=== PATIENT | female | born 1965 | race Caucasian/White ===

== ENCOUNTER → 2017-09-15 15:31 | Outpatient (POV) | payer OTHER, SELFPAY ==
[2017-09-15 16:28] LABS: Basophils % 0.7 % (0.1-2.0); Eosinophils # 0.1 K/mm3 (0.0-0.4); Eosinophils % 2.8 % (0.1-12.0); Hematocrit 38.6 % (37.0-47.0); Hemoglobin 13.2 g/dL (12.2-16.2); Lymphocytes # 1.4 K/mm3 (0.7-4.5); Lymphocytes % 27.8 K/mm3 (10-50); Mean Corpuscular HGB Conc 34.2 g/dL (31.8-35.4); Mean Corpuscular Hemoglobin 32.4 pg (27.0-31.2); Mean Corpuscular Volume 94.8 fl (81-99); Mean Platelet Volume 8.2 fl (7.4-10.4); Monocytes # 0.5 K/mm3 (0.1-1.0); Monocytes % 9.2 % (1.7-9.3); Neutrophils % 59.6 % (37.0-80.0); Platelet Count 262 K/mm3 (142-424); Red Blood Count 4.07 M/mm3 (4.20-5.40); Red Cell Distribution Width 12.8 % (11.5-17.5)
[2017-09-15 18:43] LABS: Alanine Aminotransferase 29 U/L (12-78); Albumin Level 3.9 gm/dL (3.4-5.0); Albumin/Globulin Ratio 1.2 (1.1-1.8); Alkaline Phosphatase 70 U/L (46-116); Anion Gap 15.1 mEq/L (5-15); Aspartate Amino Transferase 16 U/L (15-37); Bilirubin,Total 0.4 mg/dL (0.2-1.0); Blood Urea Nitrogen 13 mg/dL (7-18); Calcium 9.1 mg/dL (8.5-10.1); Carbon Dioxide 23 mmol/L (21.0-32.0); Chloride 106 mmol/L (98-107); Creatinine,Serum 0.59 mg/dL (0.55-1.02); Estimated Glomerular Filt Rate 106 ml/min (>60); GFR (African American) 129 ML/MIN (>60); Globulin 3.3 gm/dl (1.3-3.2); Glucose 129 mg/dL (74-106); Potassium 4.1 mmoL/L (3.5-5.1); Sodium 140 mmol/L (136-145); Total Protein,Serum 7.2 gm/dL (6.4-8.2)
== END ==
PROVIDERS: Visit Provider Physician Assistant
DX: L40.0 Psoriasis vulgaris (principal); Z79.899 Other long term (current) drug therapy
CPT/HCPCS: 36415; 80053; 85025; 86480

== ENCOUNTER → 2017-11-07 15:59 | Outpatient (CLI) | payer OTHER, SELFPAY ==
--- NOTE | 2017-11-07 16:03 | XR_ITS ---
XR chest 2V HISTORY: ITS.REASON: HIGH RISK MED USE ORDERING PHYSICIAN: Cha Restrepo PATIENT AGE: 52 years COMPARISON: FINDINGS: The cardiomediastinal silhouette and pulmonary vascularity are within normal limits. The lungs are clear without infiltrates, suspicious nodules, or pleural effusions. No acute bony abnormalities. IMPRESSION: Negative chest, no acute finding
== END ==
PROVIDERS: PCP Nurse Practitioner; Visit Provider Nurse Practitioner
DX: Z79.899 Other long term (current) drug therapy (principal)
CPT/HCPCS: 71046

== ENCOUNTER → 2018-04-13 09:25 | Outpatient (CLI) | payer OTHER, SELFPAY ==
[2018-04-13 09:54] LABS: Basophils % 0.7 % (0.1-2.0); Eosinophils # 0.1 K/mm3 (0.0-0.4); Eosinophils % 2.1 % (0.1-12.0); Hematocrit 38.9 % (37.0-47.0); Hemoglobin 12.9 g/dL (12.2-16.2); Lymphocytes # 1.6 K/mm3 (0.7-4.5); Lymphocytes % 31.5 K/mm3 (10-50); Mean Corpuscular Hemoglobin 32.3 pg (27.0-31.2); Mean Corpuscular Volume 97.8 fl (81-99); Mean Platelet Volume 7.9 fl (7.4-10.4); Monocytes # 0.4 K/mm3 (0.1-1.0); Monocytes % 7.4 % (1.7-9.3); Neutrophils # 2.9 K/mm3 (1.8-7.8); Neutrophils % 58.3 % (37.0-80.0); Platelet Count 261 K/mm3 (142-424); Red Blood Count 3.98 M/mm3 (4.20-5.40); Red Cell Distribution Width 13.1 % (11.5-17.5)
[2018-04-13 10:19] LABS: Alanine Aminotransferase 24 U/L (12-78); Albumin Level 3.7 gm/dL (3.4-5.0); Albumin/Globulin Ratio 1.2 (1.1-1.8); Alkaline Phosphatase 78 U/L (46-116); Anion Gap 4.3 mEq/L (5-15); Aspartate Amino Transferase 9 U/L (15-37); Bilirubin,Total 0.4 mg/dL (0.2-1.0); Blood Urea Nitrogen 13 mg/dL (7-18); Carbon Dioxide 28 mmol/L (21.0-32.0); Chloride 106 mmol/L (98-107); Creatinine,Serum 0.65 mg/dL (0.55-1.02); Estimated Glomerular Filt Rate 95 ml/min (>60); GFR (African American) 115 ML/MIN (>60); Globulin 3.2 gm/dl (1.3-3.2); Glucose 105 mg/dL (74-106); Potassium 4.3 mmoL/L (3.5-5.1); Sodium 134 mmol/L (136-145); Total Protein,Serum 6.9 gm/dL (6.4-8.2)
== END ==
PROVIDERS: PCP Nurse Practitioner; Visit Provider Physician Assistant
DX: L40.0 Psoriasis vulgaris (principal); Z79.899 Other long term (current) drug therapy
CPT/HCPCS: 36415; 80053; 85025

== ENCOUNTER → 2018-04-13 09:26 | Outpatient (POV) | payer OTHER, SELFPAY | PROVIDERS: Family Provider Family Medicine; PCP Nurse Practitioner; Visit Provider Physician Assistant | DX: Z00.00 Encounter for general adult medical examination without abnormal findings (principal) ==

== ENCOUNTER → 2018-10-20 15:03 | Outpatient (CLI) | payer OTHER, SELFPAY ==
[2018-10-20 15:28] LABS: Basophils # 0.1 K/mm3 (0-0.2); Eosinophils # 0.2 K/mm3 (0.0-0.4); Eosinophils % 2.8 % (0.1-12.0); Hematocrit 38.6 % (37.0-47.0); Hemoglobin 12.9 g/dL (12.2-16.2); Lymphocytes # 1.7 K/mm3 (0.7-4.5); Lymphocytes % 32.6 % (10-50); Mean Corpuscular HGB Conc 33.4 g/dL (31.8-35.4); Mean Corpuscular Hemoglobin 32.6 pg (27.0-31.2); Mean Corpuscular Volume 97.5 fl (81-99); Mean Platelet Volume 7.6 fl (7.4-10.4); Monocytes # 0.4 K/mm3 (0.1-1.0); Monocytes % 6.7 % (1.7-9.3); Neutrophils % 56.9 % (37.0-80.0); Platelet Count 269 K/mm3 (142-424); Red Blood Count 3.96 M/mm3 (4.20-5.40); Red Cell Distribution Width 12.9 % (11.5-17.5); White Blood Count 5.3 K/mm3 (4.8-10.8)
[2018-10-20 16:27] LABS: Alanine Aminotransferase 22 U/L (12-78); Albumin Level 3.7 gm/dL (3.4-5.0); Albumin/Globulin Ratio 1.1 (1.1-1.8); Alkaline Phosphatase 70 U/L (46-116); Anion Gap 14.5 mEq/L (5-15); Aspartate Amino Transferase 13 U/L (15-37); Bilirubin,Total 0.3 mg/dL (0.2-1.0); Blood Urea Nitrogen 14 mg/dL (7-18); Calcium 9.3 mg/dL (8.5-10.1); Carbon Dioxide 26 mmol/L (21.0-32.0); Chloride 105 mmol/L (98-107); Estimated Glomerular Filt Rate 128 ml/min (>60); GFR (African American) 155 ML/MIN (>60); Globulin 3.3 gm/dl (1.3-3.2); Glucose 115 mg/dL (74-106); Potassium 4.5 mmoL/L (3.5-5.1); Sodium 141 mmol/L (136-145)
[2018-10-23 07:23] LABS: QuantiFERON-TB Gold Plus Negative (Negative)
== END ==
PROVIDERS: Visit Provider Dermatology
DX: L40.0 Psoriasis vulgaris (principal); Z79.899 Other long term (current) drug therapy
CPT/HCPCS: 36415; 80053; 85025; 86480

== ENCOUNTER → 2019-01-20 12:54 | Outpatient (CLI) | payer OTHER, SELFPAY ==
--- NOTE | 2019-01-20 12:57 | US_ITS ---
US urinary bladder ORDERING PHYSICIAN : Tony Moffett JR PATIENT AGE: 53 years GENDER: Female HISTORY:ITS.REASON: MIXED URINARY INCONTINENCE COMPARISON: None TECHNIQUE: Routine FINDINGS: The fluid-filled urinary bladder is 11.5 x 6.4 x 7.0 cm with smooth santos. The volume is 276 mL. The post void urinary bladder is 4.2 x 4.3 x 3.4 cm with residual volume of 33.1 mL. IMPRESSION: Normal ultrasound of the urinary bladder with mild post void residual.
--- NOTE | 2019-01-20 13:24 | US_ITS ---
US Kidney ORDERING PHYSICIAN : Tony Moffett JR PATIENT AGE: 53 years GENDER: Female HISTORY:ITS.REASON: MIXED URINARY INCONTINENCE COMPARISON: None TECHNIQUE: Routine FINDINGS: Right kidney is 11.5 x 5.3 x 6.0 cm. Left kidney is 11.7 x 5.9 x 6.2 cm. Echogenic appearance of the cortical areas compared to the liver are normal. Bilaterally there are no shadowing echogenic foci are hydronephrosis or cortical lesions. IMPRESSION: Normal ultrasound of both kidneys.
== END ==
PROVIDERS: PCP Family Medicine; Visit Provider Urology
DX: N39.46 Mixed incontinence (principal)
CPT/HCPCS: 76770; 76857

== ENCOUNTER → 2019-09-07 15:24 | Outpatient (POV) | payer OTHER, SELFPAY | PROVIDERS: Visit Provider Dermatology | DX: Z00.00 Encounter for general adult medical examination without abnormal findings (principal) ==

== ENCOUNTER → 2020-01-24 18:03 | Outpatient (CLI) | payer OTHER, SELFPAY ==
[2020-01-24 19:12] LABS: Chloride 106 mmol/L (98-107)
[2020-01-24 19:13] LABS: Potassium 4.5 mmoL/L (3.5-5.1); Sodium 139 mmol/L (136-145)
[2020-01-24 19:15] LABS: Alanine Aminotransferase 20 U/L (12-78); Alkaline Phosphatase 68 U/L (38-126); Anion Gap 9.5 mEq/L (5-15); Aspartate Amino Transferase 21 U/L (14-36); Bilirubin,Total 0.6 mg/dl (0.2-1.3); Blood Urea Nitrogen 19 mg/dl (7-17); Carbon Dioxide 28 mmol/L (22.0-30.0); Estimated Glomerular Filt Rate 74 ml/min (>60); GFR (African American) 90 ML/MIN (>60)
[2020-01-24 19:16] LABS: Albumin Level 4.1 g/dl (3.5-5.0); Albumin/Globulin Ratio 1.4 (1.1-1.8); Calcium 9.5 mg/dl (8.4-10.2); Glucose 103 mg/dl (74-100); Total Protein,Serum 7.1 g/dl (6.3-8.2)
[2020-01-24 20:20] LABS: Basophils % 0.7 % (0.1-2.0); Eosinophils # 0.1 K/mm3 (0.0-0.4); Eosinophils % 1.9 % (0.1-12.0); Hematocrit 38.5 % (37.0-47.0); Hemoglobin 13.4 g/dL (12.2-16.2); Lymphocytes % 33.5 % (10-50); Mean Corpuscular HGB Conc 34.7 g/dL (31.8-35.4); Mean Corpuscular Hemoglobin 33.8 pg (27.0-31.2); Mean Corpuscular Volume 97.3 fl (81-99); Mean Platelet Volume 8.5 fl (7.4-10.4); Monocytes # 0.5 K/mm3 (0.1-1.0); Monocytes % 8.3 % (1.7-9.3); Neutrophils # 3.4 K/mm3 (1.8-7.8); Neutrophils % 55.6 % (37.0-80.0); Platelet Count 241 K/mm3 (142-424); Red Blood Count 3.96 M/mm3 (4.20-5.40); Red Cell Distribution Width 12.8 % (11.5-17.5); White Blood Count 6.1 K/mm3 (4.8-10.8)
[2020-01-28 17:14] LABS: QuantiFERON-TB Gold Plus Negative (Negative)
== END ==
PROVIDERS: Dermatology; Visit Provider Internal Medicine Rheumatology
DX: M25.561 Pain in right knee (principal); L40.0 Psoriasis vulgaris; Z79.899 Other long term (current) drug therapy
CPT/HCPCS: 36415; 80053; 85025; 86480

== ENCOUNTER → 2020-09-25 09:00 | Outpatient (CLI) | payer OTHER, SELFPAY ==
[2020-09-25 09:50] LABS: Basophils % 0.9 % (0.1-2.0); Eosinophils # 0.1 K/mm3 (0.0-0.4); Eosinophils % 3.5 % (0.1-12.0); Hematocrit 40.5 % (37.0-47.0); Hemoglobin 13.5 g/dL (12.2-16.2); Lymphocytes # 1.4 K/mm3 (0.7-4.5); Lymphocytes % 37.4 % (10-50); Mean Corpuscular HGB Conc 33.2 g/dL (31.8-35.4); Mean Corpuscular Hemoglobin 32.3 pg (27.0-31.2); Mean Corpuscular Volume 97.3 fl (81-99); Mean Platelet Volume 8.3 fl (7.4-10.4); Monocytes # 0.3 K/mm3 (0.1-1.0); Monocytes % 9.2 % (1.7-9.3); Neutrophils # 1.8 K/mm3 (1.8-7.8); Platelet Count 238 K/mm3 (142-424); Red Blood Count 4.17 M/mm3 (4.20-5.40); Red Cell Distribution Width 13.3 % (11.5-17.5); White Blood Count 3.7 K/mm3 (4.8-10.8)
[2020-09-25 10:43] LABS: Chloride 108 mmol/L (98-107); Potassium 4.8 mmoL/L (3.5-5.1); Sodium 142 mmol/L (136-145)
[2020-09-25 10:46] LABS: Alanine Aminotransferase 28 U/L (12-78); Albumin Level 4.1 g/dl (3.5-5.0); Albumin/Globulin Ratio 1.5 (1.1-1.8); Alkaline Phosphatase 65 U/L (38-126); Anion Gap 10.8 mEq/L (5-15); Aspartate Amino Transferase 33 U/L (14-36); Bilirubin,Total 0.7 mg/dl (0.2-1.3); Blood Urea Nitrogen 13 mg/dl (7-17); Carbon Dioxide 28 mmol/L (22.0-30.0); Estimated Glomerular Filt Rate 103 ml/min (>60); GFR (African American) 125 ML/MIN (>60); Globulin 2.7 g/dL (1.3-3.2); Total Protein,Serum 6.8 g/dl (6.3-8.2)
[2020-09-25 10:47] LABS: Glucose 124 mg/dl (74-100)
[2020-09-30 18:09] LABS: QuantiFERON-TB Gold Plus Negative (Negative)
== END ==
PROVIDERS: Dermatology; Visit Provider Internal Medicine Rheumatology
DX: M17.10 Unilateral primary osteoarthritis, unspecified knee (principal); L40.0 Psoriasis vulgaris; Z79.1 Long term (current) use of non-steroidal anti-inflammatories (NSAID); Z79.899 Other long term (current) drug therapy
CPT/HCPCS: 36415; 80053; 85025; 86480

== ENCOUNTER → 2020-09-26 08:56 | Outpatient (POV) | payer OTHER, SELFPAY | PROVIDERS: Visit Provider Dermatology | DX: Z00.00 Encounter for general adult medical examination without abnormal findings (principal) ==

== ENCOUNTER → 2021-04-23 11:24 | Outpatient (CLI) | payer OTHER, SELFPAY ==
[2021-04-23 12:34] LABS: Basophils # 0.1 K/mm3 (0-0.2); Eosinophils # 0.1 K/mm3 (0.0-0.4); Eosinophils % 2.4 % (0.1-12.0); Hematocrit 40.8 % (37.0-47.0); Hemoglobin 13.2 g/dL (12.2-16.2); Lymphocytes # 1.5 K/mm3 (0.7-4.5); Lymphocytes % 33.3 % (10-50); Mean Corpuscular HGB Conc 32.4 g/dL (31.8-35.4); Mean Corpuscular Hemoglobin 32.3 pg (27.0-31.2); Mean Corpuscular Volume 99.5 fl (81-99); Mean Platelet Volume 8.6 fl (7.4-10.4); Monocytes # 0.5 K/mm3 (0.1-1.0); Monocytes % 9.9 % (1.7-9.3); Neutrophils # 2.5 K/mm3 (1.8-7.8); Neutrophils % 53.4 % (37.0-80.0); Platelet Count 272 K/mm3 (142-424); Red Blood Count 4.09 M/mm3 (4.20-5.40); White Blood Count 4.6 K/mm3 (4.8-10.8)
[2021-04-23 13:13] LABS: Erythrocyte Sedimentation Rate 27 mm/hr (0-30)
[2021-04-23 13:20] LABS: Chloride 106 mmol/L (98-107)
[2021-04-23 13:21] LABS: Potassium 4.9 mmoL/L (3.5-5.1); Sodium 140 mmol/L (136-145)
[2021-04-23 13:23] LABS: Alanine Aminotransferase 18 U/L (12-78); Aspartate Amino Transferase 25 U/L (14-36); Bilirubin,Total 0.5 mg/dl (0.2-1.3); Blood Urea Nitrogen 21 mg/dl (7-17); Estimated Glomerular Filt Rate 74 ml/min (>60); GFR (African American) 89 ML/MIN (>60)
[2021-04-23 13:24] LABS: Albumin/Globulin Ratio 1.5 (1.1-1.8); Alkaline Phosphatase 80 U/L (38-126); Anion Gap 9.9 mEq/L (5-15); Calcium 9.8 mg/dl (8.4-10.2); Carbon Dioxide 29 mmol/L (22.0-30.0); Globulin 2.7 g/dL (1.3-3.2); Glucose 102 mg/dl (74-100); Total Protein,Serum 6.7 g/dl (6.3-8.2)
[2021-04-23 13:29] LABS: C-Reactive Protein 3.7 mg/L (0-4)
== END ==
PROVIDERS: Visit Provider Nurse Practitioner Family
DX: M17.10 Unilateral primary osteoarthritis, unspecified knee (principal); D89.9 Disorder involving the immune mechanism, unspecified; Z79.1 Long term (current) use of non-steroidal anti-inflammatories (NSAID)
CPT/HCPCS: 36415; 80053; 85025; 85651; 86140

== ENCOUNTER → 2021-10-22 11:43 | Outpatient (CLI) | payer OTHER, SELFPAY ==
[2021-10-22 12:16] LABS: Basophils # 0.1 K/mm3 (0-0.2); Basophils % 1.1 % (0.1-2.0); Eosinophils # 0.1 K/mm3 (0.0-0.4); Eosinophils % 2.4 % (0.1-12.0); Hematocrit 40.3 % (37.0-47.0); Hemoglobin 13.5 g/dL (12.2-16.2); Lymphocytes # 1.9 K/mm3 (0.7-4.5); Lymphocytes % 36.7 % (10-50); Mean Corpuscular HGB Conc 33.6 g/dL (31.8-35.4); Mean Corpuscular Hemoglobin 33.1 pg (27.0-31.2); Mean Corpuscular Volume 98.7 fl (81-99); Mean Platelet Volume 8.8 fl (7.4-10.4); Monocytes # 0.4 K/mm3 (0.1-1.0); Monocytes % 7.2 % (1.7-9.3); Neutrophils # 2.6 K/mm3 (1.8-7.8); Neutrophils % 52.6 % (37.0-80.0); Platelet Count 256 K/mm3 (142-424); Red Blood Count 4.09 M/mm3 (4.20-5.40); Red Cell Distribution Width 13.3 % (11.5-17.5)
[2021-10-22 16:50] LABS: Alanine Aminotransferase 19 U/L (12-78); Albumin/Globulin Ratio 1.7 (1.1-1.8); Alkaline Phosphatase 72 U/L (38-126); Anion Gap 9.4 mEq/L (5-15); Aspartate Amino Transferase 21 U/L (14-36); Bilirubin,Total 0.5 mg/dl (0.2-1.3); Blood Urea Nitrogen 19 mg/dl (7-17); Carbon Dioxide 27 mmol/L (22.0-30.0); Chloride 107 mmol/L (98-107); Estimated Glomerular Filt Rate 86 ml/min (>60); GFR (African American) 104 ML/MIN (>60); Globulin 2.4 g/dL (1.3-3.2); Glucose 103 mg/dl (74-100); Potassium 4.4 mmoL/L (3.5-5.1); Sodium 139 mmol/L (136-145); Total Protein,Serum 6.4 g/dl (6.3-8.2)
== END ==
PROVIDERS: PCP Nurse Practitioner Family; Visit Provider Internal Medicine Rheumatology
DX: M17.10 Unilateral primary osteoarthritis, unspecified knee (principal); Z79.1 Long term (current) use of non-steroidal anti-inflammatories (NSAID)
CPT/HCPCS: 36415; 80053; 85025

== ENCOUNTER → 2021-11-20 15:47 | Outpatient (POV) | payer OTHER, SELFPAY | PROVIDERS: Visit Provider Dermatology | DX: Z00.00 Encounter for general adult medical examination without abnormal findings (principal) ==

== ENCOUNTER → 2021-11-20 16:20 | Outpatient (CLI) | payer OTHER, SELFPAY ==
[2021-11-20 16:48] LABS: Basophils # 0.1 K/mm3 (0-0.2); Basophils % 1.2 % (0.1-2.0); Eosinophils # 0.2 K/mm3 (0.0-0.4); Hematocrit 39.5 % (37.0-47.0); Hemoglobin 12.9 g/dL (12.2-16.2); Lymphocytes # 1.7 K/mm3 (0.7-4.5); Lymphocytes % 36.2 % (10-50); Mean Corpuscular HGB Conc 32.7 g/dL (31.8-35.4); Mean Corpuscular Hemoglobin 31.7 pg (27.0-31.2); Mean Corpuscular Volume 96.8 fl (81-99); Mean Platelet Volume 7.9 fl (7.4-10.4); Monocytes # 0.3 K/mm3 (0.1-1.0); Neutrophils # 2.5 K/mm3 (1.8-7.8); Neutrophils % 51.7 % (37.0-80.0); Platelet Count 243 K/mm3 (142-424); Red Blood Count 4.08 M/mm3 (4.20-5.40); Red Cell Distribution Width 13.1 % (11.5-17.5); White Blood Count 4.8 K/mm3 (4.8-10.8)
[2021-11-20 17:56] LABS: Chloride 108 mmol/L (98-107); Sodium 139 mmol/L (136-145)
[2021-11-20 17:57] LABS: Potassium 4.4 mmoL/L (3.5-5.1)
[2021-11-20 17:59] LABS: Alanine Aminotransferase 27 U/L (12-78); Alkaline Phosphatase 70 U/L (38-126); Aspartate Amino Transferase 29 U/L (14-36); Bilirubin,Total 0.7 mg/dl (0.2-1.3); Blood Urea Nitrogen 14 mg/dl (7-17); Estimated Glomerular Filt Rate 103 ml/min (>60); GFR (African American) 124 ML/MIN (>60)
[2021-11-20 18:00] LABS: Albumin/Globulin Ratio 1.7 (1.1-1.8); Anion Gap 8.4 mEq/L (5-15); Calcium 9.8 mg/dl (8.4-10.2); Carbon Dioxide 27 mmol/L (22.0-30.0); Globulin 2.4 g/dL (1.3-3.2); Glucose 102 mg/dl (74-100); Total Protein,Serum 6.4 g/dl (6.3-8.2)
[2021-11-22 19:18] LABS: QuantiFERON-TB Gold Plus Negative (Negative)
== END ==
PROVIDERS: PCP Nurse Practitioner Family; Visit Provider Dermatology
DX: L40.0 Psoriasis vulgaris (principal); Z79.899 Other long term (current) drug therapy
CPT/HCPCS: 36415; 80053; 85025; 86480

== ENCOUNTER → 2022-11-18 14:28 | Outpatient (CLI) | payer OTHER, SELFPAY ==
[2022-11-18 15:06] LABS: Basophils # 0.1 K/mm3 (0-0.2); Basophils % 1.1 % (0.1-2.0); Eosinophils # 0.1 K/mm3 (0.0-0.4); Hematocrit 41.8 % (37.0-47.0); Hemoglobin 13.5 g/dL (12.2-16.2); Lymphocytes # 1.6 K/mm3 (0.7-4.5); Lymphocytes % 30.1 % (10-50); Mean Corpuscular HGB Conc 32.3 g/dL (31.8-35.4); Mean Corpuscular Hemoglobin 31.4 pg (27.0-31.2); Mean Corpuscular Volume 97.1 fl (81-99); Mean Platelet Volume 8.1 fl (7.4-10.4); Monocytes # 0.4 K/mm3 (0.1-1.0); Monocytes % 7.3 % (1.7-9.3); Neutrophils # 3.2 K/mm3 (1.8-7.8); Neutrophils % 59.4 % (37.0-80.0); Platelet Count 268 K/mm3 (142-424); Red Blood Count 4.31 M/mm3 (4.20-5.40); Red Cell Distribution Width 13.2 % (11.5-17.5); White Blood Count 5.4 K/mm3 (4.8-10.8)
[2022-11-18 15:48] LABS: Erythrocyte Sedimentation Rate 21 mm/hr (0-30)
[2022-11-18 15:56] LABS: Alanine Aminotransferase 17 U/L (12-78); Albumin Level 4.1 g/dl (3.5-5.0); Albumin/Globulin Ratio 1.5 (1.1-1.8); Alkaline Phosphatase 79 U/L (38-126); Anion Gap 10.5 mEq/L (5-15); Aspartate Amino Transferase 19 U/L (14-36); Bilirubin,Total 0.7 mg/dl (0.2-1.3); Blood Urea Nitrogen 20 mg/dl (7-17); Calcium 9.2 mg/dl (8.4-10.2); Carbon Dioxide 27 mmol/L (22.0-30.0); Chloride 103 mmol/L (98-107); Estimated Glomerular Filt Rate 102 ml/min (>60); GFR (African American) 124 ML/MIN (>60); Globulin 2.7 g/dL (1.3-3.2); Glucose 100 mg/dl (74-100); Potassium 4.5 mmoL/L (3.5-5.1); Sodium 136 mmol/L (136-145); Total Protein,Serum 6.8 g/dl (6.3-8.2)
[2022-11-18 16:02] LABS: C-Reactive Protein 2.7 mg/L (0-4)
== END ==
PROVIDERS: PCP Nurse Practitioner Family; Visit Provider Nurse Practitioner Family
DX: M25.561 Pain in right knee (principal); Z79.1 Long term (current) use of non-steroidal anti-inflammatories (NSAID)
CPT/HCPCS: 36415; 80053; 85025; 85651; 86140

== ENCOUNTER → 2022-11-26 08:05 | Outpatient (POV) | payer OTHER, SELFPAY | PROVIDERS: Visit Provider Dermatology | DX: Z00.00 Encounter for general adult medical examination without abnormal findings (principal) ==

== ENCOUNTER → 2022-12-30 07:21 | Outpatient (CLI) | payer OTHER, SELFPAY ==
[2022-12-30 08:40] LABS: Basophils % 0.9 % (0.1-2.0); Eosinophils # 0.1 K/mm3 (0.0-0.4); Eosinophils % 2.8 % (0.1-12.0); Hematocrit 40.9 % (37.0-47.0); Lymphocytes # 1.4 K/mm3 (0.7-4.5); Lymphocytes % 28.5 % (10-50); Mean Corpuscular HGB Conc 31.9 g/dL (31.8-35.4); Mean Corpuscular Hemoglobin 32.1 pg (27.0-31.2); Mean Corpuscular Volume 100.7 fl (81-99); Mean Platelet Volume 8.8 fl (7.4-10.4); Monocytes # 0.5 K/mm3 (0.1-1.0); Monocytes % 9.1 % (1.7-9.3); Neutrophils % 58.7 % (37.0-80.0); Platelet Count 260 K/mm3 (142-424); Red Blood Count 4.06 M/mm3 (4.20-5.40); Red Cell Distribution Width 13.3 % (11.5-17.5); White Blood Count 5.1 K/mm3 (4.8-10.8)
[2022-12-30 09:21] LABS: Chloride 106 mmol/L (98-107); Sodium 140 mmol/L (136-145)
[2022-12-30 09:22] LABS: Potassium 4.2 mmoL/L (3.5-5.1)
[2022-12-30 09:24] LABS: Alanine Aminotransferase 26 U/L (12-78); Albumin Level 3.7 g/dl (3.5-5.0); Albumin/Globulin Ratio 1.4 (1.1-1.8); Alkaline Phosphatase 77 U/L (38-126); Anion Gap 14.2 mEq/L (5-15); Aspartate Amino Transferase 25 U/L (14-36); Bilirubin,Total 0.4 mg/dl (0.2-1.3); Blood Urea Nitrogen 23 mg/dl (7-17); Carbon Dioxide 24 mmol/L (22.0-30.0); Estimated Glomerular Filt Rate 102 ml/min (>60); GFR (African American) 124 ML/MIN (>60); Globulin 2.6 g/dL (1.3-3.2); Total Protein,Serum 6.3 g/dl (6.3-8.2)
[2022-12-30 09:25] LABS: Calcium 9.4 mg/dl (8.4-10.2); Glucose 116 mg/dl (74-100)
[2023-01-02 10:45] LABS: QuantiFERON-TB Gold Plus Negative (Negative)
== END ==
PROVIDERS: PCP Nurse Practitioner Family; Visit Provider Dermatology
DX: L40.8 Other psoriasis (principal)
CPT/HCPCS: 36415; 80053; 85025; 86480

== ENCOUNTER → 2023-04-28 07:34 | Outpatient (CLI) | payer OTHER, SELFPAY ==
[2023-04-28 07:58] LABS: Basophils # 0.1 K/mm3 (0-0.2); Eosinophils # 0.2 K/mm3 (0.0-0.4); Eosinophils % 3.8 % (0.1-12.0); Hematocrit 41.7 % (37.0-47.0); Hemoglobin 13.2 g/dL (12.2-16.2); Lymphocytes # 1.4 K/mm3 (0.7-4.5); Lymphocytes % 31.2 % (10-50); Mean Corpuscular HGB Conc 31.6 g/dL (31.8-35.4); Mean Corpuscular Hemoglobin 31.2 pg (27.0-31.2); Mean Corpuscular Volume 98.7 fl (81-99); Mean Platelet Volume 8.2 fl (7.4-10.4); Monocytes # 0.3 K/mm3 (0.1-1.0); Monocytes % 7.5 % (1.7-9.3); Neutrophils # 2.5 K/mm3 (1.8-7.8); Neutrophils % 56.4 % (37.0-80.0); Platelet Count 242 K/mm3 (142-424); Red Blood Count 4.22 M/mm3 (4.20-5.40); Red Cell Distribution Width 13.1 % (11.5-17.5); White Blood Count 4.4 K/mm3 (4.8-10.8)
[2023-04-28 10:30] LABS: Chloride 109 mmol/L (98-107)
[2023-04-28 10:31] LABS: Potassium 4.1 mmoL/L (3.5-5.1); Sodium 140 mmol/L (136-145)
[2023-04-28 10:33] LABS: Alanine Aminotransferase 21 U/L (12-78); Alkaline Phosphatase 78 U/L (38-126); Aspartate Amino Transferase 23 U/L (14-36); Bilirubin,Total 0.6 mg/dl (0.2-1.3); Blood Urea Nitrogen 21 mg/dl (7-17); Estimated Glomerular Filt Rate 85 ml/min (>60); GFR (African American) 103 ML/MIN (>60)
[2023-04-28 10:34] LABS: Albumin Level 3.7 g/dl (3.5-5.0); Albumin/Globulin Ratio 1.4 (1.1-1.8); Anion Gap 11.1 mEq/L (5-15); Calcium 9.4 mg/dl (8.4-10.2); Carbon Dioxide 24 mmol/L (22.0-30.0); Globulin 2.7 g/dL (1.3-3.2); Glucose 125 mg/dl (74-100); Total Protein,Serum 6.4 g/dl (6.3-8.2)
== END ==
PROVIDERS: Internal Medicine Rheumatology; PCP Family Medicine; Visit Provider Nurse Practitioner
DX: M17.0 Bilateral primary osteoarthritis of knee (principal); Z79.1 Long term (current) use of non-steroidal anti-inflammatories (NSAID)
CPT/HCPCS: 36415; 80053; 85025

== ENCOUNTER 2023-05-08 17:00 | Outpatient (RCR) | payer OTHER, SELFPAY | END 2023-05-08 17:05 | disposition home or self-care (01) | LOC: PT 17:00 | PROVIDERS: PCP Nurse Practitioner Family; Visit Provider Internal Medicine Rheumatology | DX: M70.61 Trochanteric bursitis, right hip; M17.0 Bilateral primary osteoarthritis of knee | CPT/HCPCS: 97010; 97014; 97110; 97163; G0283 ==

== ENCOUNTER 2023-09-17 20:01 | Emergency (ER) | payer OTHER, SELFPAY ==
[2023-09-17 20:10] VITALS: BP 186/108; PULSE 116; RESP 17; TEMP 36.9; O2SAT 95; BMI 43.9
[2023-09-17 20:18] LABS: Coronavirus 19, PCR Not Detected (NotDetected); Influenza B, PCR Not Detected (NotDetected)
[2023-09-17 20:41] LABS: Influenza A, PCR Detected (NotDetected)
--- NOTE | 2023-09-17 20:51 | XR_ITS ---
PROCEDURE INFORMATION: Exam: XR Chest Exam date and time: 09/17/2023 8:48 PM Age: 58 years old Clinical indication: Patient HX: Patient stated she has had a cough since last night. ; Additional info: Chest pain TECHNIQUE: Imaging protocol: Radiologic exam of the chest. Views: 2 views. COMPARISON: CR CXR2V XR chest 2V 11/07/2017 4:07 PM FINDINGS: Lungs: Central opacities with peribronchial cuffing, seen to advantage on the lateral chest radiograph. Pleural spaces: Unremarkable. No pleural effusion. No pneumothorax. Heart/Mediastinum: Unremarkable. No cardiomegaly. Bones/joints: Unremarkable. IMPRESSION: Combination of findings that suggests viral process versus reactive airways without evidence of consolidation.
--- NOTE | 2023-09-17 20:56 | PC.NURSE ---
Pt to CT via wheel chair w/ caustic strength inspector
--- NOTE | 2023-09-17 21:01 | PC.NURSE ---
Pt back from X-Ray. Has no complaints at this time.
--- NOTE | 2023-09-17 21:31 | ED_ITS ---
Discharge Plan Disposition Patient Disposition: Home, Self-Care Condition: Fair Prescriptions Prescriptions: New lzwnwuhhkupdslq-wmceowqam-AO [Bromfed DM] 2-30-10 mg/5 mL syrup 5 ml PO Q6H PRN (Reason: cold symptoms) Qty: 118 0RF No Action lisinopril 20 mg tablet 20 mg PO QDAY escitalopram oxalate [Lexapro] 10 mg tablet 10 mg PO QDAY estradiol [Vivelle-Dot] 0.075 mg/24 hr patch semiweekly 1 patch TRANSDERMA ONCE adalimumab [Humira Pen] 40 mg/0.8 mL pen injector kit 40 mg SUB-Q Q14D Referrals Follow up/Referrals: Phil Cleveland MD [Primary Care Provider] - See instructions Activity Restrictions/Add. Instructions Additional Instructions/Restrictions: You have influenza A. We have prescribed a cough medicine but make sure that you are not combining cough medicines that contain acetaminophen with other acetaminophen medications like Tylenol. Follow-up with your primary care doctor. Clinical Impressions Clinical Impression: Influenza A Instructions Patient Instructions: DI for Influenza -- Adult Discharge ED Provider: Zena Olivera General Adult HPI General Chief complaint: Upper Respiratory Infection Stated complaint: cough, ernesto Time Seen by Provider: 09/17/23 20:37 Mode of Arrival: Family Vehicle Source of Information: Patient Limitations: No Limitations Description of Symptoms (Recalled from ER Triage Doc. by RN): 58 YO FEMALE PRESENTS WITH CC OF EXCESSIVE COUGHING SINCE YESTERDAY. States she has had a + flu exposure at work, has head congestion and head pressure and coughing as symptoms. Denies fever, denies angina, denies edema, denies n/v/d. Denies abd pain. Deines dizziness or syncope. History of Present Illness HPI narrative: 58-year-old female with previous medical history of hypertension and obesity presents with 24 hours of cough. She states people at work of had the flu and for the past days she has had some mild bodyaches, coughing that is nonproductive, no chest pain, shortness of breath, or other concerns. Related Data Home Medications Medication Instructions Recorded Confirmed adalimumab 40 mg/0.8 mL 40 mg SQ Q14D 08/05/17 subcutaneous pen kit (Humira Pen) escitalopram oxalate 10 mg tablet 10 mg PO QDAY 08/05/17 (Lexapro) estradiol 0.075 mg/24 hr 1 patch transdermal ONCE 08/05/17 semiweekly transdermal patch (Vivelle-Dot) lisinopril 20 mg tablet 20 mg PO QDAY 08/05/17 Previous Rx's Medication Instructions Recorded glrtasdfugyshph-ieppvjdbjcfzwha-PM 5 ml PO Q6H PRN cold symptoms #118 09/17/23 2 mg-30 mg-10 mg/5 mL oral syrup mL (Bromfed DM) Allergies Allergy/AdvReac Type Severity Reaction Status Date / Time acetaminophen Allergy Unknown Unverified 08/05/17 10:10 [From TYLENOL-CODEINE #3] codeine Allergy Unknown Unverified 08/05/17 10:10 [From TYLENOL-CODEINE #3] PFSH [facility] Disclaimer: The information contained in this section may have been updated after the patient was seen, as this information can be updated by other users. Social History Smoking Status: Unknown if ever smoked alcohol intake: current counseling provided: provider counseling substance use type: denies use current occupational status: employed Travel in the last 8 weeks: None ROS Obtained: Yes All systems reviewed & no additional complaints except as documented Physical Exam General General appearance: alert, in no apparent distress and obese Head Head exam: atraumatic, normocephalic and normal inspection Eye Eye exam: Present normal appearance, PERRL and EOMI ENT ENT exam: Present normal exam, normal oropharynx, mucous membranes moist, TM's normal bilaterally and normal external ear exam Neck Neck exam: Present normal inspection, full ROM and trachea midline; Absent meningismus or lymphadenopathy Chest Chest inspection: Present normal inspection and symmetric chest wall rise; Absent tenderness Respiratory Respiratory exam: Present normal lung sounds bilaterally; Absent respiratory distress Cardiovascular Cardiovascular exam: Present regular rate and normal rhythm; Absent JVD Abdominal Exam Abdominal exam: Present soft and normal bowel sounds; Absent distention, tenderness or guarding Extremities Exam Extremities exam: Present normal inspection, full ROM and normal capillary refill; Absent calf tenderness Back Exam Back exam: Present normal inspection; Absent tenderness Neurological Exam Neurological exam: Present alert and oriented X3 Psychiatric Psychiatric exam: Present normal affect and normal mood Skin Skin exam: Present warm, dry, intact and normal color Lymphatic Lymphatic Findings: no adenopathy Medical Decision Making Edward Inquiry Pt receiving controlled substance: No Edward was queried for this patient: No Vital Signs: 09/17/23 20:10 09/17/23 21:37 Temperature 98.5 F 98.6 F Temperature Source Oral Oral Pulse Rate 72 Pulse Rate [Right Brachial] 116 H Respiratory Rate 17 18 Blood Pressure 126/90 Blood Pressure [Left Arm] 186/108 H Blood Pressure Mean [Left Arm] 134 Blood Pressure Source [Left Arm] Automatic Cuff Blood Pressure Position [Left Arm] Sitting 02 Sat by Pulse Oximetry 95 Oxygen Delivery Method Room Air Room Air Lab Data Lab Results 09/17/23 20:15: SARS-CoV-2 (PCR) Not detected, Influenza A Untype (PCR) Detected A, Influenza Type B (PCR) Not detected Orders (Tests/Meds): ORDERS Category Date Time Status Chest XR 2 view (NOT portable) [XR chest 2V] Stat Exams 09/17/23 20:51 Completed Rapid PCR Covid and Flu A/B Stat Lab 09/17/23 20:15 Completed Medical Decision Narrative: Consider multiple causes of patient's presentation including viral syndrome, pneumonia, pleural effusion, pneumothorax, among others. Low suspicion given no chest pain or lightheadedness or other concerns for ACS or other cardiac emergencies to cause her cough. Also low suspicion for reactive airway disease component as patient has no wheezing and no asthma history. For this reason ordered chest x-ray which independently reviewed and interpreted and showed no pneumothorax or consolidation or pleural effusions, only mild interstitial thickening consistent with viral syndrome. COVID and influenza swabs were performed that were positive for influenza. Had risk and benefit conversation regarding antiviral medication and at this time patient is comfortable treating with cough medications and conservative management without antivirals given risk of nausea and vomiting. Appropriate for discharge at this time. Critical Care Critical Care Time Critical Care Time: No
[2023-09-17 21:37] VITALS: BP 126/90; PULSE 72; RESP 18; TEMP 37; O2SAT 98
== END 2023-09-17 21:55 | disposition home or self-care (01) ==
PROVIDERS: Emergency Provider Emergency Medicine; PCP Family Medicine
DX: J10.1 Influenza due to other identified influenza virus with other respiratory manifestations (principal); R05.9 Cough, unspecified; R09.81 Nasal congestion; I10 Essential (primary) hypertension
CPT/HCPCS: 71046; 87636; 99283

== ENCOUNTER 2023-10-23 14:23 | Outpatient (CLI) | payer OTHER, SELFPAY ==
[2023-10-23 14:54] LABS: Basophils # 0.1 K/mm3 (0-0.2); Basophils % 1.6 % (0.1-2.0); Eosinophils # 0.2 K/mm3 (0.0-0.4); Eosinophils % 2.1 % (0.1-12.0); Hematocrit 42.9 % (37.0-47.0); Hemoglobin 13.8 g/dL (12.2-16.2); Lymphocytes # 2.1 K/mm3 (0.7-4.5); Lymphocytes % 24.8 % (10-50); Mean Corpuscular HGB Conc 32.3 g/dL (31.8-35.4); Mean Corpuscular Hemoglobin 32.7 pg (27.0-31.2); Mean Corpuscular Volume 101.4 fl (81-99); Mean Platelet Volume 8.7 fl (7.4-10.4); Monocytes # 0.6 K/mm3 (0.1-1.0); Monocytes % 7.2 % (1.7-9.3); Neutrophils # 5.5 K/mm3 (1.8-7.8); Neutrophils % 64.2 % (37.0-80.0); Platelet Count 290 K/mm3 (142-424); Red Blood Count 4.23 M/mm3 (4.20-5.40); Red Cell Distribution Width 13.7 % (11.5-17.5); White Blood Count 8.6 K/mm3 (4.8-10.8)
[2023-10-23 15:08] LABS: Alanine Aminotransferase 22 U/L (12-78); Albumin Level 4.3 g/dl (3.5-5.0); Albumin/Globulin Ratio 1.7 (1.1-1.8); Alkaline Phosphatase 72 U/L (38-126); Anion Gap 10.2 mEq/L (5-15); Aspartate Amino Transferase 28 U/L (14-36); Bilirubin,Total 0.8 mg/dl (0.2-1.3); Blood Urea Nitrogen 18 mg/dl (7-17); Calcium 9.9 mg/dl (8.4-10.2); Carbon Dioxide 24 mmol/L (22.0-30.0); Chloride 109 mmol/L (98-107); Estimated Glomerular Filt Rate 85 ml/min (>60); GFR (African American) 103 ML/MIN (>60); Globulin 2.6 g/dL (1.3-3.2); Glucose 117 mg/dl (74-100); Potassium 4.2 mmoL/L (3.5-5.1); Sodium 139 mmol/L (136-145); Total Protein,Serum 6.9 g/dl (6.3-8.2)
== END 2023-10-23 23:59 ==
LOC: LAB 14:24
PROVIDERS: PCP Nurse Practitioner; Visit Provider Internal Medicine Rheumatology
DX: M17.10 Unilateral primary osteoarthritis, unspecified knee (principal); Z79.1 Long term (current) use of non-steroidal anti-inflammatories (NSAID)
CPT/HCPCS: 36415; 80053; 85025

== ENCOUNTER 2023-12-02 16:13 | Outpatient (POV) | payer OTHER, SELFPAY | END 2023-12-02 23:59 | disposition home or self-care (01) | LOC: SC 16:14 | PROVIDERS: PCP Nurse Practitioner; Visit Provider Dermatology | DX: Z00.00 Encounter for general adult medical examination without abnormal findings (principal) ==

== ENCOUNTER 2023-12-02 16:15 | Outpatient (CLI) | payer OTHER, SELFPAY ==
[2023-12-02 17:19] LABS: Basophils # 0.1 K/mm3 (0-0.2); Basophils % 1.4 % (0.1-2.0); Eosinophils # 0.1 K/mm3 (0.0-0.4); Eosinophils % 2.4 % (0.1-12.0); Hematocrit 40.3 % (37.0-47.0); Hemoglobin 12.6 g/dL (12.2-16.2); Lymphocytes # 1.7 K/mm3 (0.7-4.5); Lymphocytes % 37.3 % (10-50); Mean Corpuscular HGB Conc 31.4 g/dL (31.8-35.4); Mean Corpuscular Hemoglobin 31.7 pg (27.0-31.2); Mean Corpuscular Volume 101.1 fl (81-99); Mean Platelet Volume 8.8 fl (7.4-10.4); Monocytes # 0.4 K/mm3 (0.1-1.0); Monocytes % 8.1 % (1.7-9.3); Neutrophils # 2.3 K/mm3 (1.8-7.8); Neutrophils % 50.9 % (37.0-80.0); Platelet Count 234 K/mm3 (142-424); Red Blood Count 3.99 M/mm3 (4.20-5.40); Red Cell Distribution Width 13.6 % (11.5-17.5); White Blood Count 4.5 K/mm3 (4.8-10.8)
[2023-12-02 17:23] LABS: Chloride 105 mmol/L (98-107); Sodium 138 mmol/L (136-145)
[2023-12-02 17:24] LABS: Potassium 4.4 mmoL/L (3.5-5.1)
[2023-12-02 17:26] LABS: Alanine Aminotransferase 18 U/L (12-78); Alkaline Phosphatase 80 U/L (38-126); Anion Gap 11.4 mEq/L (5-15); Aspartate Amino Transferase 21 U/L (14-36); Bilirubin,Total 0.5 mg/dl (0.2-1.3); Blood Urea Nitrogen 18 mg/dl (7-17); Calcium 9.7 mg/dl (8.4-10.2); Carbon Dioxide 26 mmol/L (22.0-30.0); Estimated Glomerular Filt Rate 73 ml/min (>60); GFR (African American) 89 ML/MIN (>60); Glucose 110 mg/dl (74-100)
[2023-12-02 17:27] LABS: Albumin Level 3.9 g/dl (3.5-5.0); Albumin/Globulin Ratio 1.6 (1.1-1.8); Globulin 2.5 g/dL (1.3-3.2); Total Protein,Serum 6.4 g/dl (6.3-8.2)
[2023-12-04 21:22] LABS: QuantiFERON-TB Gold Plus Negative (Negative)
== END 2023-12-02 23:59 | disposition home or self-care (01) ==
LOC: LAB 16:16
PROVIDERS: PCP Nurse Practitioner; Visit Provider Dermatology
DX: L40.0 Psoriasis vulgaris (principal); Z79.899 Other long term (current) drug therapy
CPT/HCPCS: 36415; 80053; 85025; 86480

== ENCOUNTER → 2024-08-23 07:22 | Outpatient (CLI) | payer OTHER, SELFPAY | LOC: SL 07:23 | PROVIDERS: PCP Family Medicine; Visit Provider Family Medicine | DX: R06.81 Apnea, not elsewhere classified (principal) | CPT/HCPCS: 95806 ==

== ENCOUNTER 2024-09-07 13:22 | Outpatient (CLI) | payer OTHER, SELFPAY ==
--- NOTE | 2024-09-07 13:26 | XR_ITS ---
FINAL REPORT CLINICAL HISTORY: right knee pain COMPARISON: None FINDINGS: RIGHT KNEE 3 views of the right knee were obtained. There is no acute fracture or dislocation. There are moderate tricompartmental degenerative changes, most pronounced in the medial compartment. There is a rounded calcification within the posterior fossa, likely a 17 mm loose body within a Castro's cyst. Soft tissues are unremarkable. IMPRESSION: Degenerative changes. Posterior calcification, presumed loose body within a Castro's cyst. Reviewed, Interpreted and Dictated by Tami Bhat MD Transcribed by Madhuri Mccracken Authenticated and [facility]
--- NOTE | 2024-09-07 13:32 | XR_ITS ---
FINAL REPORT CLINICAL HISTORY: left knee pain COMPARISON: none FINDINGS: LEFT KNEE 3 views of the left knee were obtained. There is no acute fracture or dislocation. Moderate tricompartmental degenerative change, most pronounced in the medial compartment. Soft tissues are unremarkable. IMPRESSION: Degenerative change without acute bony abnormality. Reviewed, Interpreted and Dictated by Tami Bhat MD Transcribed by Madhuri Mccracken Authenticated and [facility]
== END 2024-09-07 23:59 | disposition home or self-care (01) ==
LOC: RAD 13:23
PROVIDERS: PCP Nurse Practitioner; Visit Provider Physician Assistant
DX: M25.561 Pain in right knee (principal); M25.562 Pain in left knee
CPT/HCPCS: 73562

== ENCOUNTER → 2024-11-30 16:40 | Outpatient (CLI) | payer OTHER, SELFPAY | LOC: SL 16:40 | PROVIDERS: PCP Nurse Practitioner; Visit Provider Specialist | DX: G47.33 Obstructive sleep apnea (adult) (pediatric) (principal); G47.34 Idiopathic sleep related nonobstructive alveolar hypoventilation | CPT/HCPCS: 94762 ==

== ENCOUNTER → 2025-01-12 20:36 | Outpatient (CLI) | payer OTHER, SELFPAY ==
--- OUTSIDE RECORDS SUMMARY | 2025-01-12 20:40 | XMS_ITS | Data Portability ---
Author Organization RIGOBERTO PERRY Pa [place] CLOS[facility] Address [address] [facility] [place] [address] Assessment Encounter Date Assessment Date Assessment LastModified by Organization Details LastModified Time 11/11/2018 11/11/2018 PREOPERATIVE DIAGNOSIS: Mixed incontinence. POSTOPERATIVE DIAGNOSIS: Mixed incontinence. PROCEDURE: Cystoscopy. ANESTHESIA: Local. COMPLICATIONS: None. FINDINGS: Normal cystoscopy. OPERATIVE NOTE: The patient gives her full consent. She was brought into the operating suite, where she was placed in the supine position. She was sterilely prepped and draped in normal fashion after being placed in the frog leg position, padding all pressure points. Scope was inserted into the patient's urethra and bladder atraumatically. There was no urethral stenosis. Pancystoscopy was performed. There were no bladder tumors. No erythematous or velvety lesions. Both ureteral orifices were orthotopic in nature with clear efflux. Retroflexed view of the bladder neck is normal. Normal cystoscopy. [email or web address] Not available 11/11/2018 15:02:55 Plan of Treatment Reminders Order Date Submit Date Provider Last Modified By Organization Details Last Modified Time Details Appointments None recorded. Lab urinalysis , dipstick, auto 2018 019 [facility] Extended Services With [facility], [address] [place] [address], [facility] [address], [place], [address], 9 14:49:31 urinalysis , dipstick, auto 2018 019 [facility] Extended Services With [facility], [address], [address], [place], [address], 9 16:44:50 urinalysis , dipstick, auto 2018 019 [email or web address] [facility] [place] Extended [facility] With [facility], [address], [address], [place], [address], 9 15:32:24 Referral None recorded. Procedures urodynamic testing, complex (PROC) 2018 019 katt [facility] With [facility], [address], [address], [place], [address], 9 15:34:34 Surgeries sling operation for stress incontinen ce (SURG) 2018 [email or web address], [address] [facility], [address], [place], [address], 0 14:46:00 cystoscopy (SURG) 2018 019 [email or web address] [facility], [address] [facility], [address], [place], [address], 9 10:25:30 Imaging US, bladder - Renal US w/Bladder 2018 019 [facility] (Scheduling), [address], [place], [address], 9 09:45:11 Medication Orders Myrbetriq 50 mg tablet,ext ended release 2018 019 INTERFACE [facility], [address], [address], [place], [address], 9 15:35:43 Patient TargetsNo targets recorded. Patient Instructions Encounter Date Encounter Id Patient Instructions Last Modified By Organization Details Last Modified Time 09/28/2018 [id number] rectocele: care instructions [email or web address] Not available 09/28/2018 16:56:39 healthy together [email or web address] Not available 09/28/2018 15:32:24 bladder training : care instructions [email or web address] Not available 09/28/2018 15:32:24 kegel exercises: care instructions tslabaugh Not available 09/28/2018 15:32:24 Stress Incontinence: Care Instructions [email or web address] Not available 09/28/2018 15:32:24 Urge Incontinenc e: Care Instructions [email or web address] Not available 09/28/2018 15:32:24 Plan for trial o f medication for urgency incontinence. Because of the mixed nature of her incontinence and previously failed treatments we will plan for urodynamics. Plan for cystoscopy to rule out any sinister causes of an incontinence. Further recommendation to follow testing. We will follow-up on her operative report find out what kind of bladder neck procedure she had in the past. His is likely a Carbajal procedure. [email or web address] Not available 09/28/2018 16:56:10 11/23/2018 [id number] bladder training : care instructions tslabaugh Not available 11/23/2018 16:44:50 kegel exercises: care instructions tslabaugh Not available 11/23/2018 16:44:50 Stress Incontinence: Care Instructions [email or web address] Not available 11/23/2018 16:44:50 Urge Incontinenc e: Care Instructions tslabaugh Not available 11/23/2018 16:44:50 We will try to treat the patient's urgency issues prior to consideration of treatment for stress incontinence. Trial of Myrbetriq. [email or web address] Not available 11/23/2018 16:45:17 01/11/2019 [id number] bladder training : care instructions tslabaugh Not available 01/11/2019 14:49:30 kegel exercises: care instructions tslabaugh Not available 01/11/2019 14:49:30 Stress Incontinence: Care Instructions tslabaugh Not available 01/11/2019 14:49:30 Urge Incontinenc e: Care Instructions tslabaugh Not available 01/11/2019 14:49:30 Plan for bladder ultrasound to recheck postvoid residual We have discussed today her leakage issue and have discussed surgical and nonsurgical treatment options. After discussion, she would like to proceed with bladder neck suspension with the TOT procedure described in detail to her today. She is aware of risks and potential complications all discussed in detail with her today. She is also aware that this procedure entails the placement of a small strip of permanent mesh material. [email or web address] Not available 01/11/2019 14:50:10 Reason for Referral None Reported. Results Created Date Observation Date Name Description Value Unit Range Abnormal Flag Note LastModifiedBy Organization Detail LastModifiedTime 11/24/19 19 11/23/2018 urina lysis , dipst ick, auto Unknown Analyte Yellow Not Available [facility] Extended Services With [address] [facility], [place], [address], 11/23/2018 16:33:49 11/24/19 19 11/23/2018 urina lysis , dipst ick, auto Unknown Analyte Clear Not Available [facility] Extended Services With [place] [address], [place], [address], 11/23/2018 16:33:49 11/24/19 19 11/23/2018 urina lysis , dipst ick, auto Unknown Analyte 1.010 Not Available [facility] Extended Services With [address], [place], [address], 11/23/2018 16:33:49 11/24/19 19 11/23/2018 urina lysis , dipst ick, auto Unknown Analyte 1.003 - 1.035 Not Available [facility] Extended Services With [place] [address], [place], [address], 11/23/2018 16:33:49 11/24/19 19 11/23/2018 urina lysis , dipst ick, auto Unknown Analyte 7.0 Not Available [facility] Extended Services With [place] [address] [facility] [address], [place], [address], 11/23/2018 16:33:49 11/24/19 19 11/23/2018 urina lysis , dipst ick, auto Unknown Analyte 5.0 - 8.0 Not Available [facility] [place] [facility] Services With [facility] [address], [place], [address], 11/23/2018 16:33:49 11/24/19 19 11/23/2018 urina lysis , dipst ick, auto Unknown Analyte Negati ve Not Available [facility] [place] [facility] With [facility] [address], [place], [address], 11/23/2018 16:33:49 11/24/19 19 11/23/2018 urina lysis , dipst ick, auto Unknown Analyte Negati ve Not Available [facility] [place] Extended Services With [place] [address], [place], [address], 11/23/2018 16:33:49 11/24/19 19 11/23/2018 urina lysis , dipst ick, auto Unknown Analyte Negati ve Not Available [facility] [place] Extended Services With [place] [address], [place], [address], 11/23/2018 16:33:49 11/24/19 19 11/23/2018 urina lysis , dipst ick, auto Unknown Analyte Negati ve Not Available [facility] [place] Extended Services With [facility] [address], [place], [address], 11/23/2018 16:33:49 11/24/19 19 11/23/2018 urina lysis , dipst ick, auto Unknown Analyte Negtiv e Not Available [facility] [place] Extended Services With [place] [address] [facility] [address], [place], [address], 11/23/2018 16:33:49 11/24/19 19 11/23/2018 urina lysis , dipst ick, auto Unknown Analyte Negati ve - Trace Not Available [facility] [place] Extended Services With [place] [address], [place], [address], 11/23/2018 16:33:49 11/24/19 19 11/23/2018 urina lysis , dipst ick, auto Unknown Analyte Normal Not Available [facility] [place] Extended Services With [place] [address], [place], [address], 11/23/2018 16:33:49 11/24/19 19 11/23/2018 urina lysis , dipst ick, auto Unknown Analyte Normal Not Available [facility] [place] [facility] With [place] [address], [place], [address], 11/23/2018 16:33:49 11/24/19 19 11/23/2018 urina lysis , dipst ick, auto Unknown Analyte Negati ve Not Available [facility] [place] Extended Services With [place] [address], [place], [address], 11/23/2018 16:33:49 11/24/19 19 11/23/2018 urina lysis , dipst ick, auto Unknown Analyte Negati ve Not Available [facility] [place] Extended [facility] With [place] [address], [place], [address], 11/23/2018 16:33:49 11/24/19 19 11/23/2018 urina lysis , dipst ick, auto Unknown Analyte 1 mg/dl Not Available [facility] [place] Extended Services With [place] [address], [place], [address], 11/23/2018 16:33:49 11/24/19 19 11/23/2018 urina lysis , dipst ick, auto Unknown Analyte Normal - 1mg/dl Not Available [facility] [place] [facility] With [facility] [address], [place], [address], 11/23/2018 16:33:49 11/24/19 19 11/23/2018 urina lysis , dipst ick, auto Unknown Analyte Negati ve Not Available [facility] [place] Extended Services With [facility] [address], [place], [address], 11/23/2018 16:33:49 11/24/19 19 11/23/2018 urina lysis , dipst ick, auto Unknown Analyte Negati ve Not Available [facility] [place] [facility] With [facility] [address], [place], [address], 11/23/2018 16:33:49 11/24/19 19 11/23/2018 urina lysis , dipst ick, auto Unknown Analyte Negati ve Not Available [facility] [place] [facility] With [facility] [address], [place], [address], 11/23/2018 16:33:49 11/24/19 19 11/23/2018 urina lysis , dipst ick, auto Unknown Analyte Negati ve Not Available [facility] [place] [facility] With [facility] [address], [place], [address], 11/23/2018 16:33:49 09/29/19 19 09/28/2018 urina lysis , dipst ick, auto Unknown Analyte Yellow Not Available [facility] [place] [facility] Services With [facility] [address], [place], [address], 09/28/2018 15:30:23 09/29/19 19 09/28/2018 urina lysis , dipst ick, auto Unknown Analyte Clear Not Available [facility] [place] [facility] With [facility] [address] [facility] [address], [place], [address], 09/28/2018 15:30:23 09/29/19 19 09/28/2018 urina lysis , dipst ick, auto Unknown Analyte 1.010 Not Available [facility] Extended Services With [facility] [address] [facility] [address], [place], [address], 09/28/2018 15:30:23 09/29/19 19 09/28/2018 urina lysis , dipst ick, auto Unknown Analyte 1.003 - 1.035 Not Available [facility] [place] [facility] With [facility] [address] [facility] [address], [place], [address], 09/28/2018 15:30:23 09/29/19 19 09/28/2018 urina lysis , dipst ick, auto Unknown Analyte 7.0 Not Available [facility] Extended Services With [facility] [address] [facility] [address], [place], [address], 09/28/2018 15:30:23 09/29/19 19 09/28/2018 urina lysis , dipst ick, auto Unknown Analyte 5.0 - 8.0 Not Available [facility] [place] [facility] With [facility] [address], [place], [address], 09/28/2018 15:30:23 09/29/19 19 09/28/2018 urina lysis , dipst ick, auto Unknown Analyte Negati ve Not Available [facility] [place] [facility] With [facility] [address], [place], [address], 09/28/2018 15:30:23 09/29/19 19 09/28/2018 urina lysis , dipst ick, auto Unknown Analyte Negati ve Not Available [facility] [place] [facility] With [facility] [address], [place], [address], 09/28/2018 15:30:23 09/29/19 19 09/28/2018 urina lysis , dipst ick, auto Unknown Analyte Negati ve Not Available [facility] [place] Extended [facility] With [facility] [address], [place], [address], 09/28/2018 15:30:23 09/29/19 19 09/28/2018 urina lysis , dipst ick, auto Unknown Analyte Negati ve Not Available [facility] [place] Extended Services With [facility] [address], [place], [address], 09/28/2018 15:30:23 09/29/19 19 09/28/2018 urina lysis , dipst ick, auto Unknown Analyte Negtiv e Not Available [facility] [place] Extended Services With [facility] [address], [place], [address], 09/28/2018 15:30:23 09/29/19 19 09/28/2018 urina lysis , dipst ick, auto Unknown Analyte Negati ve - Trace Not Available [facility] [place] Extended [facility] With [facility] [address], [place], [address], 09/28/2018 15:30:23 09/29/19 19 09/28/2018 urina lysis , dipst ick, auto Unknown Analyte Normal Not Available [facility] [place] Extended Services With [facility] [address], [place], [address], 09/28/2018 15:30:23 09/29/19 19 09/28/2018 urina lysis , dipst ick, auto Unknown Analyte Normal Not Available [facility] Extended Services With [facility] [address], [place], [address], 09/28/2018 15:30:23 09/29/19 19 09/28/2018 urina lysis , dipst ick, auto Unknown Analyte Negati ve Not Available [facility] Extended Services With [facility] [address], [place], [address], 09/28/2018 15:30:23 09/29/19 19 09/28/2018 urina lysis , dipst ick, auto Unknown Analyte Negati ve Not Available [facility] Extended Services With [facility] [address], [place], [address], 09/28/2018 15:30:23 09/29/19 19 09/28/2018 urina lysis , dipst ick, auto Unknown Analyte 1 mg/dl Not Available [facility] Extended Services With [facility] [address], [place], [address], 09/28/2018 15:30:23 09/29/19 19 09/28/2018 urina lysis , dipst ick, auto Unknown Analyte Normal - 1mg/dl Not Available [facility] [place] [facility] Services With [facility] [address], [place], [address], 09/28/2018 15:30:23 09/29/19 19 09/28/2018 urina lysis , dipst ick, auto Unknown Analyte Negati ve Not Available [facility] [place] Extended Services With [facility] [address], [place], [address], 09/28/2018 15:30:23 09/29/19 19 09/28/2018 urina lysis , dipst ick, auto Unknown Analyte Negati ve Not Available [facility] [place] Extended Services With [facility] [address], [place], [address], 09/28/2018 15:30:23 09/29/19 19 09/28/2018 urina lysis , dipst ick, auto Unknown Analyte Negati ve Not Available [facility] [place] Extended Services With [facility] [address], [place], [address], 09/28/2018 15:30:23 09/29/19 19 09/28/2018 urina lysis , dipst ick, auto Unknown Analyte Negati ve Not Available [facility] [place] Extended Services With [facility] [address], [place], [address], 09/28/2018 15:30:23 09/29/19 19 09/28/2018 urina lysis , dipst ick, auto Unknown Analyte Clean Catch Not Available [facility] [place] Extended Services With [facility] [address], [place], [address], 09/28/2018 15:30:23 09/29/19 19 09/28/2018 urina lysis , dipst ick, auto Unknown Analyte Automa kiley Not Available [facility] [place] Extended Services With [facility] [address], [place], [address], 09/28/2018 15:30:23 11/12/19 19 11/11/2018 urina lysis , dipst ick, auto Unknown Analyte Yellow Not Available [facility] Schedule [address] [place], [address], 11/11/2018 14:23:53 11/12/19 19 11/11/2018 urina lysis , dipst ick, auto Unknown Analyte Clear Not Available [facility] Schedule [address] [place], [address], 11/11/2018 14:23:53 11/12/19 19 11/11/2018 urina lysis , dipst ick, auto Unknown Analyte 1.010 Not Available [facility] Surgery Schedule [facility] [place], [address], 11/11/2018 14:23:53 11/12/19 19 11/11/2018 urina lysis , dipst ick, auto Unknown Analyte 5.0 Not Available [facility] Schedule [address] [place] [address], [address], 11/11/2018 14:23:53 11/12/19 19 11/11/2018 urina lysis , dipst ick, auto Unknown Analyte Negati ve Not Available [facility] Surgery Schedule [address] [place] [address], [address], 11/11/2018 14:23:53 11/12/19 19 11/11/2018 urina lysis , dipst ick, auto Unknown Analyte Negati ve Not Available [facility] Surgery Schedule [address] [place], [address], 11/11/2018 14:23:53 11/12/19 19 11/11/2018 urina lysis , dipst ick, auto Unknown Analyte Negtiv e Not Available [facility] Surgery Schedule [facility] [place], [address], 11/11/2018 14:23:53 11/12/19 19 11/11/2018 urina lysis , dipst ick, auto Unknown Analyte Normal Not Available [facility] Schedule [address] [place], [address], 11/11/2018 14:23:53 11/12/19 19 11/11/2018 urina lysis , dipst ick, auto Unknown Analyte Negati ve Not Available [facility] Surgery Schedule [address] [place], [address], 11/11/2018 14:23:53 11/12/19 19 11/11/2018 urina lysis , dipst ick, auto Unknown Analyte Normal Not Available [facility] Schedule [address] [place], [address], 11/11/2018 14:23:53 11/12/19 19 11/11/2018 urina lysis , dipst ick, auto Unknown Analyte Negati ve Not Available [facility] Surgery Schedule [address] [place], [address], 11/11/2018 14:23:53 11/12/19 19 11/11/2018 urina lysis , dipst ick, auto Unknown Analyte Negati ve Not Available [facility] Surgery Schedule [address] [place], [address], 11/11/2018 14:23:53 11/12/19 19 11/11/2018 urina lysis , dipst ick, auto Unknown Analyte Clean Catch Not Available [facility] Surgery Schedule [address] [place], [address], 11/11/2018 14:23:53 11/12/19 19 11/11/2018 urina lysis , dipst ick, auto Unknown Analyte Automa kiley Not Available [facility] Surgery Schedule [address] [place], [address], 11/11/2018 14:23:53 01/12/20 19 01/11/2019 urina lysis , dipst ick, auto Unknown Analyte Yellow Not Available [facility] [place] Extended Services With [facility] [address] [facility] [address], [place], [address], 01/11/2019 14:35:50 01/12/20 19 01/11/2019 urina lysis , dipst ick, auto Unknown Analyte Clear Not Available [facility] [place] Extended Services With [facility] [address], [place], [address], 01/11/2019 14:35:50 01/12/20 19 01/11/2019 urina lysis , dipst ick, auto Unknown Analyte 1.010 Not Available [facility] [address] [facility] [address], [place], [address], 01/11/2019 14:35:50 01/12/20 19 01/11/2019 urina lysis , dipst ick, auto Unknown Analyte 1.003 - 1.035 Not Available [facility] [place] Extended Services With [facility] [address] [facility] [address], [place], [address], 01/11/2019 14:35:50 01/12/20 19 01/11/2019 urina lysis , dipst ick, auto Unknown Analyte 7.0 Not Available [facility] Extended Services With [place] [address] [facility] [address], [place], [address], 01/11/2019 14:35:50 01/12/20 19 01/11/2019 urina lysis , dipst ick, auto Unknown Analyte 5.0 - 8.0 Not Available [facility] [place] [facility] Services With [facility] [address] [facility] [address], [place], [address], 01/11/2019 14:35:50 01/12/20 19 01/11/2019 urina lysis , dipst ick, auto Unknown Analyte Negati ve Not Available [facility] [place] Extended Services With [place] [address] [facility] [address], [place], [address], 01/11/2019 14:35:50 01/12/20 19 01/11/2019 urina lysis , dipst ick, auto Unknown Analyte Negati ve Not Available [facility] [place] Extended Services With [facility] [address], [place], [address], 01/11/2019 14:35:50 01/12/20 19 01/11/2019 urina lysis , dipst ick, auto Unknown Analyte Negati ve Not Available [facility] [place] Extended Services With [facility] [address], [place], [address], 01/11/2019 14:35:50 01/12/20 19 01/11/2019 urina lysis , dipst ick, auto Unknown Analyte Negati ve Not Available [facility] [place] Extended Services With [facility] [address], [place], [address], 01/11/2019 14:35:50 01/12/20 19 01/11/2019 urina lysis , dipst ick, auto Unknown Analyte Negtiv e Not Available [facility] [place] Extended Services With [place] [address], [place], [address], 01/11/2019 14:35:50 01/12/2001/11/2019 urina lysis , dipst ick, auto Unknown Analyte Negati ve - Trace Not Available [facility] [place] Extended Services With [facility] [address], [place], [address], 01/11/2019 14:35:50 01/12/20 19 01/11/2019 urina lysis , dipst ick, auto Unknown Analyte Normal Not Available [facility] [place] Extended Services With [place] [address], [place], [address], 01/11/2019 14:35:50 01/12/20 19 01/11/2019 urina lysis , dipst ick, auto Unknown Analyte Normal Not Available [facility] [place] Extended Services With [place] [address], [place], [address], 01/11/2019 14:35:50 01/12/20 19 01/11/2019 urina lysis , dipst ick, auto Unknown Analyte Negati ve Not Available [facility] [place] Extended Services With [place] [address] [address], [place], [address], 01/11/2019 14:35:50 01/12/20 19 01/11/2019 urina lysis , dipst ick, auto Unknown Analyte Negati ve Not Available [facility] [place] [address], [place], [address], 01/11/2019 14:35:50 01/12/20 19 01/11/2019 urina lysis , dipst ick, auto Unknown Analyte Normal Not Available [facility] With [place] [address], [place], [address], 01/11/2019 14:35:50 01/12/2001/11/2019 urina lysis , dipst ick, auto Unknown Analyte Normal - 1mg/dl Not Available [facility] With [facility] [address], [place], [address], 01/11/2019 14:35:50 01/12/20 19 01/11/2019 urina lysis , dipst ick, auto Unknown Analyte Negati ve Not Available [facility] [place] [address], [place], [address], 01/11/2019 14:35:50 01/12/20 19 01/11/2019 urina lysis , dipst ick, auto Unknown Analyte Negati ve Not Available [facility] [place] [address], [place], [address], 01/11/2019 14:35:50 01/12/20 19 01/11/2019 urina lysis , dipst ick, auto Unknown Analyte Negati ve Not Available [facility] [place] [address], [place], [address], 01/11/2019 14:35:50 01/12/20 19 01/11/2019 urina lysis , dipst ick, auto Unknown Analyte Negati ve Not Available [facility] [place] [address], [place], [address], 01/11/2019 14:35:50 01/12/20 19 01/11/2019 urina lysis , dipst ick, auto Unknown Analyte Clean Catch Not Available [facility] [place] [address] [facility] [address], [place], [address], 01/11/2019 14:35:50 01/12/20 19 01/11/2019 urina lysis , dipst ick, auto Unknown Analyte Automa kiley Not Available [facility] [address], [place], [address], 01/11/2019 14:35:50 01/21/20 19 01/20/2019 US, bladd er No observ ation record ed. [facility] [address] [place] [address] [address] [place], [phone], 01/28/2019 11:17:09 01/21/20 19 01/20/2019 , maynor dave No observ ation record ed. [facility] [address] [place], [phone], 01/28/2019 11:17:08 Result Notes None recorded. 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 Procedures Surgical History Date Name Laterality Status Provider Name and Address Organization Details Recorded Time 11/12/19 19 Uroflowmetry; Complex completed Nighat [facility] 11/11/2018 17:11:33 11/12/19 19 Urodynamics [place] [address] [place] [address], [address], [facility] 11/12/2018 08:30:40 11/12/19 19 Urodynamics completed [facility] 11/11/2018 17:19:43 11/12/19 19 Cystoscopy completed Murelene Eliu [facility] 11/23/2018 16:33:19 Hysterectomy completed Deseriee [place] [facility] 09/28/2018 15:27:00 Imaging Results None recorded. Procedure Notes None recorded. Medical Equipment None Reported. Allergies Allergen ID Allergen Name Allergen Category Reaction Reaction Severity Criticality Documentation Date Start Date Code Code System Note Provider Name and Address Organization Details Recorded Time 746621 codeine medicatio n Not available Not available Not available 06/21/20162013 3670 RxNorm Comme nt: Creat ed By: Loomis Herb pickard;Cr eated Date: 2013 3:51: 36 PM; Not Available [facility] 6 05:22:38 Medications Name Sig Start Date Stop Date Status Note LastModified by Organization Details LastModified Time naproxen 250 mg tablet Take 1 tablet twice a day by oral route. active Not Available Not Available No t Available omeprazole 20 mg capsule,de layed release Take 1 capsule every day by oral route. active Not Available Not Available No t Available Lexapro 20 mg tablet Daily active Duration: 30 days;Frequ ency: daily;Medi cation Descriptio n: escitalopr am; Dosage:1; Route:oral ; refills:5; Quantity:3 0 tablet Not Available Not Available Not Available Humira 40 mg/0.8 mL subcutaneo us syringe kit active Medication Descriptio n: adalimumab ; Route:subc utaneous; refills:0 Not Available Not Available Not Available lisinopril Bedtime active Duration: 30 days;Frequ ency: hs;Medicat ion Descriptio n: lisinopril ; Dosage:1; Route:oral ; refills:5; Quantity:3 0 tablet Not Available Not Available Not Available Vivelle-Do t active Medication Descriptio n: estradiol; Route:farmer sdermal; refills:0 Not Available Not Available Not Available Myrbetriq 50 mg tablet,ext ended release Take 1 tablet every day by oral route. 2018 active Not Available Not Available Not Avai lable Vitals Date Recorded Body height Body mass index (BMI) Body weight Provider Name and Address Organization Details Last Updated DateTime 09/28/2018 157.48 cm 43.9 kg/m2 862089.17 g Papierijustin Remydle [facility] 09/28/2018 15:25:23 Date Recorded Body height Body mass index (BMI) Body weight Provider Name and Address Organization Details Last Updated DateTime 11/11/2018 157.48 cm 43.9 kg/m2 400645.17 g Nighat Hay [facility] 11/11/2018 17:10:17 Date Recorded Body height Body mass index (BMI) Body weight Provider Name and Address Organization Details Last Updated DateTime 11/23/2018 157.48 cm 43.9 kg/m2 994187.17 g Nikolai Nowak [facility] 11/23/2018 16:32:49 Date Recorded Body height Body mass index (BMI) Body weight Provider Name and Address Organization Details Last Updated DateTime 01/11/2019 157.48 cm 43.9 kg/m2 613756.17 g Geovani Rdz [facility] 01/11/2019 14:35:03 Social History Question Answer Notes LastModified by [employer] Details LastModified Time Tobacco Smoking Status Never [facility]oker [facility] 15:26:44 How Much Tobacco Do You Chew? None [email or web address] Information not available 11/23/2018 Marital Status Informatio n not available 09/28/2018 What Was The Date Of Your Most Recent Tobacco Screening? 01/11/2019 Information n ot available 09/14/2019 Sex: Unknown Functional Status Question Answer Note LastModified by [employer] Details LastModified Time What is your level of alcohol consumption? Occasional Information not available 09/28/2018 Mental Status None recorded. Family History Relationship Description Onset Age of this Age Resolved Age Notes LastModified by Organization Details LastModified Time Unspecified Relation Kidney stone [email or web address] Not available 10/2018 15:26:17 Unspecified Relation Diabetes mellitus [email or web address] Not available 2018 15:26:26 Unspecified Relation Family history of malignant neoplasm [email or web address] Not available 2018 15:26:33 Medical History Condition Response Anxiety Disorder Y Hypertension Y Gynecological HistoryNo gynecological history recorded. 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 [id number] LESA COLEMAN JR, MD [facility] [address] [place] [address] 11/11/2018 10:59:11 11/11/2018 12:08:48 Mixed urinary incontinence 659733783 N39.46 [id number] LESA COLEMAN JR, MD SURGERY SCHEDULE [address] [place] [address] 11/11/2018 13:25:28 11/11/2018 13:28:35 [id number] LESA COLEMAN JR, MD [facility] [address] [facility] [place] [address] 11/23/2018 16:02:38 11/24/2018 09:13:47 Mixed urinary incontinence 399293890 N39.46 [id number] LESA COLEMAN JR, MD [facility] [address] [facility] [address] [place] [address] 01/11/2019 14:33:18 01/11/2019 15:15:51 Mixed urinary incontinence 092452357 N39.46 Health Concerns Section Related Observation LastModified by Organization Detai ls LastModified Time None Recorded Concern Status LastModified by Organization Details LastModified Time None Recorded Advance Directives Directive None Recorded Payers Insurance Date Sequence Insurance Name Policy Number Policy Archibald Covered Member ID Archibald Member ID Guarantor Name 06/21/2020 1 [facility] [id number] Radha Gema Chou [id number] Radha Chou Notes Date Note Type Note Provider Name and Address Organization Details Recorded Time 09/28/2018 text/html aboutPatient is in today for evaluation of incontinence. She is a pleasant 53-year-old female who reports mixed incontinence. She describes severe stress urinary incontinence using pads daily. She has had 2 vaginal deliveries. She has been doing Keagle exercises for more than 1 year without success. She reports having some sort of bladder neck suspension at the time of hysterectomy greater than 20 years ago. This operative note is not available today for review. Patient denies any urethral or bladder surgeries. Patient also complains of significant frequency and urgency of urination with severe urgency urinary incontinence 1-2 times daily. She estimates that her urgency incontinence is worse than her stress urinary incontinence. In the past she has tried Detrol without success. She denies hematuria. She denies dysuria. She denies recurrent urinary tract infections. LESA COLEMAN JR, [place] [facility] [place], [address], [facility] 09/28/2018 16:56:45 11/23/2018 text/html Patient is in today for follow-up of mixed incontinence. She underwent cystoscopy and urodynamics November 11, 2018. She has significant stress incontinence as well as overactivity of the bladder muscle. Do not think that her postvoid residual is accurate. She is interested in initiating therapy. She has not tried Myrbetriq at this point. MD Kaye SALMERON JR[address] [place], [address], [facility] 11/23/2018 16:45:31 01/11/2019 text/html Patient is in today for follow-up of mixed incontinence. She underwent cystoscopy and urodynamics November 11, 2018. She has significant stress incontinence as well as overactivity of the bladder muscle. Urgency symptoms have improved with myrbetriq therapy. Patient is interested in suburethral sling for treatment of stress incontinence. MD Kaye SALMERON JR[address] [place], [address], [facility] 01/11/2019 14:50:36 OBGyn Episode No OBEpisode recorded.
== END ==
LOC: SL 20:38
PROVIDERS: PCP Nurse Practitioner; Visit Provider Specialist
DX: G47.33 Obstructive sleep apnea (adult) (pediatric) (principal); G47.34 Idiopathic sleep related nonobstructive alveolar hypoventilation; I10 Essential (primary) hypertension
CPT/HCPCS: 95811

== ENCOUNTER 2025-02-08 16:11 | Outpatient (CLI) | payer OTHER, SELFPAY ==
--- OUTSIDE RECORDS SUMMARY | 2025-02-08 16:13 | XMS_ITS | Data Portability ---
Author Organization [facility] MISHAWAKA CLOSED Address [address] [place] [address] Assessment Encounter Date Assessment Date Assessment LastModified [...] Lab urinalysis , dipstick, auto 2018 019 [facility] Extended Services With [facility], [address] , [facility] [address], [place], [address], 9 14:49:31 urinalysis , dipstick, auto 2018 019 [facility] Extended Services With [facility], [address], [address], [place], [address], 9 16:44:50 urinalysis , dipstick, auto 2018 019 must[facility] Extended Services With [facility], [address], [address], [place], [address], 9 15:32:24 Referral None recorded. Procedures urodynamic testing, complex (PROC) 2018 019 [email or web address] [facility] With [facility], [address], [address], [place], [address], 9 15:34:34 Surgeries sling operation for stress incontinen ce (SURG) [email or web address] [facility], [address] [facility] [address], [address], [place], [address], 0 14:46:00 cystoscopy (SURG) [email or web address] [facility], [address] [facility] [address], [address], [place], [address], 9 10:25:30 Imaging US, bladder - Renal US w/Bladder 2018 019 [facility] (Scheduling), [address], [place], [address], 9 09:45:11 Medication Orders Myrbetriq 50 mg tablet,ext ended release 2018 019 INTERFACE [facility], [address], [address], [place], [address], 9 15:35:43 Patient TargetsNo targets recorded. Patient Instructions Encounter Date Encounter Id Patient Instructions Last Modified By Organization Details Last Modified Time 09/28/2018 [id number] rectocele: care instructions [email or web address] Not available 09/28/2018 [...] procedure. [email or web address] Not available 09/28/2018 16:56:10 11/23/2018 [id number] bladder training : care instructions tslabaugh Not available 11/23/2018 16:44:50 kegel exercises: care instructions tslabaugh Not available 11/23/2018 16:44:50 Stress Incontinence: Care Instructions [email or web address] Not available 11/23/2018 16:44:50 Urge Incontinenc e: Care Instructions tslabaugh Not available 11/23/2018 16:44:50 We will try to treat the patient's urgency issues prior to consideration of treatment for stress incontinence. Trial of Lillibetriq. tslabaugh Not available 11/23/2018 16:45:17 01/11/2019 [id number] bladder training : care instructions tslabaugh Not [...] ick, auto Unknown Analyte Yellow Not Available [facility] Extended Services With [address], [address], 11/23/2018 16:33:49 11/24/19 19 11/23/2018 urina lysis , dipst ick, auto Unknown Analyte Clear Not Available [facility] Extended Services With [address], [address], 11/23/2018 16:33:49 11/24/19 19 11/23/2018 urina lysis , dipst ick, auto Unknown Analyte 1.010 Not Available [facility] Extended Services With [address], [address], 11/23/2018 16:33:49 11/24/19 19 11/23/2018 urina lysis , dipst ick, auto Unknown Analyte 1.003 - 1.035 Not Available [facility] Extended Services With [address], [address], 11/23/2018 16:33:49 11/24/19 19 11/23/2018 urina lysis , dipst ick, auto Unknown Analyte 7.0 Not Available [facility] Extended Services With [address] [place], [address], 11/23/2018 16:33:49 11/24/19 19 11/23/2018 urina lysis , dipst ick, auto Unknown Analyte 5.0 - 8.0 Not Available [facility] [place] Extended Services With [facility] [address], [place], [address], 11/23/2018 16:33:49 11/24/19 19 11/23/2018 urina lysis , dipst ick, auto Unknown Analyte Negati ve Not Available [facility] [place] Extended Services With [facility] [address], [place], [address], 11/23/2018 16:33:49 11/24/19 19 11/23/2018 urina lysis , dipst ick, auto Unknown Analyte Negati ve Not Available [facility] [place] Extended Services With [facility] [address], [place], [address], 11/23/2018 16:33:49 11/24/19 19 11/23/2018 urina lysis , dipst ick, auto Unknown Analyte Negati ve Not Available [facility] [place] Extended Services With [facility] [address], [place], [address], 11/23/2018 16:33:49 11/24/19 19 11/23/2018 urina lysis , dipst ick, auto Unknown Analyte Negati ve Not Available [facility] [place] Extended Services With [facility] [address], [place], [address], 11/23/2018 16:33:49 11/24/19 19 11/23/2018 urina lysis , dipst ick, auto Unknown Analyte Negtiv e Not Available [facility] [place] Extended Services With [facility] [address], [place], [address], 11/23/2018 16:33:49 11/24/19 19 11/23/2018 urina lysis , dipst ick, auto Unknown Analyte Negati ve - Trace Not Available [facility] Extended Services With [facility] [address], [place], [address], 11/23/2018 16:33:49 11/24/19 19 11/23/2018 urina lysis , dipst ick, auto Unknown Analyte Normal Not Available [facility] Extended Services With [facility] [address], [place], [address], 11/23/2018 16:33:49 11/24/19 19 11/23/2018 urina lysis , dipst ick, auto Unknown Analyte Normal Not Available [facility] Extended Services With [facility] [address], [place], [address], 11/23/2018 16:33:49 11/24/19 19 11/23/2018 urina lysis , dipst ick, auto Unknown Analyte Negati ve Not Available [facility] Extended Services With [facility] [address], [place], [address], 11/23/2018 16:33:49 11/24/19 19 11/23/2018 urina lysis , dipst ick, auto Unknown Analyte Negati ve Not Available [facility] Extended Services With [facility] [address], [place], [address], 11/23/2018 16:33:49 11/24/19 19 11/23/2018 urina lysis , dipst ick, auto Unknown Analyte 1 mg/dl Not Available [facility] [place] Extended Services With [facility] [address], [place], [address], 11/23/2018 16:33:49 11/24/19 19 11/23/2018 urina lysis , dipst ick, auto Unknown Analyte Normal - 1mg/dl Not Available [facility] [place] Extended Services With [facility] [address], [place], [address], 11/23/2018 16:33:49 11/24/19 19 11/23/2018 urina lysis , dipst ick, auto Unknown Analyte Negati ve Not Available [facility] [place] Extended Services With [facility] [address], [place], [address], 11/23/2018 16:33:49 11/24/19 19 11/23/2018 urina lysis , dipst ick, auto Unknown Analyte Negati ve Not Available [facility] [place] Extended Services With [facility] [address], [place], [address], 11/23/2018 16:33:49 11/24/19 19 11/23/2018 urina lysis , dipst ick, auto Unknown Analyte Negati ve Not Available [facility] [place] Extended Services With [facility] [address], [place], [address], 11/23/2018 16:33:49 11/24/19 19 11/23/2018 urina lysis , dipst ick, auto Unknown Analyte Negati ve Not Available [facility] [place] Extended Services With [facility] [address], [place], [address], 11/23/2018 16:33:49 09/29/19 19 09/28/2018 urina lysis , dipst ick, auto Unknown Analyte Yellow Not Available [facility] [place] Extended Services With [place] [address] [facility] [facility] [address], [place], [address], 09/28/2018 15:30:23 09/29/19 19 09/28/2018 urina lysis , dipst ick, auto Unknown Analyte Clear Not Available [facility] Extended Services With [place] [address] [facility] [facility] [address], [place], [address], 09/28/2018 15:30:23 09/29/19 19 09/28/2018 urina lysis , dipst ick, auto Unknown Analyte 1.010 Not Available [facility] Extended Services With [place] [address] [facility] [address], [place], [address], 09/28/2018 15:30:23 09/29/19 19 09/28/2018 urina lysis , dipst ick, auto Unknown Analyte 1.003 - 1.035 Not Available [facility] [place] Extended Services With [place] [address] [facility] [address], [place], [address], 09/28/2018 15:30:23 09/29/19 19 09/28/2018 urina lysis , dipst ick, auto Unknown Analyte 7.0 Not Available [facility] Extended Services With [place] [address] [facility] [address], [place], [address], 09/28/2018 15:30:23 09/29/19 19 09/28/2018 urina lysis , dipst ick, auto Unknown Analyte 5.0 - 8.0 Not Available [facility] [place] Extended Services With [place] [address], [place], [address], 09/28/2018 15:30:23 09/29/19 19 09/28/2018 urina lysis , dipst ick, auto Unknown Analyte Negati ve Not Available [facility] [place] Extended Services With [facility] [address], [place], [address], 09/28/2018 15:30:23 09/29/19 19 09/28/2018 urina lysis , dipst ick, auto Unknown Analyte Negati ve Not Available [facility] [place] Extended Services With [facility] [address], [place], [address], 09/28/2018 15:30:23 09/29/19 19 09/28/2018 urina lysis , dipst ick, auto Unknown Analyte Negati ve Not Available [facility] [place] Extended Services With [facility] [address], [place], [address], 09/28/2018 15:30:23 09/29/19 19 09/28/2018 urina lysis , dipst ick, auto Unknown Analyte Negati ve Not Available [facility] [place] Extended Services With [facility] [address], [place], [address], 09/28/2018 15:30:23 09/29/19 19 09/28/2018 urina lysis , dipst ick, auto Unknown Analyte Negtiv e Not Available [facility] [place] Extended Services With [facility] [address], [place], [address], 09/28/2018 15:30:23 09/29/19 19 09/28/2018 urina lysis , dipst ick, auto Unknown Analyte Negati ve - Trace Not Available [facility] [place] Extended Services With [facility] [address], [place], [address], 09/28/2018 15:30:23 03/0409/28/2018 urina lysis , dipst ick, auto Unknown Analyte Normal Not Available [facility] Extended Services With [facility] [address], [place], [address], 09/28/2018 15:30:23 09/29/19 19 09/28/2018 urina lysis , dipst ick, auto Unknown Analyte Normal Not Available [facility] Extended Services With [facility] [address], [place], [address], 09/28/2018 15:30:23 09/29/1909/28/2018 urina lysis , dipst ick, auto Unknown Analyte Negati ve Not Available [facility] Extended Services With [facility] [address], [place], [address], 09/28/2018 15:30:23 09/29/19 19 09/28/2018 urina lysis , dipst ick, auto Unknown Analyte Negati ve Not Available [facility] Extended Services With [facility] [address], [place], [address], 09/28/2018 15:30:23 09/29/19 19 09/28/2018 urina lysis , dipst ick, auto Unknown Analyte 1 mg/dl Not Available [facility] [place] Extended Services With [facility] [address], [place], [address], 09/28/2018 15:30:23 09/29/19 19 09/28/2018 urina lysis , dipst ick, auto Unknown Analyte Normal - 1mg/dl Not Available [facility] [place] Extended Services With [facility] [address], [place], [address], 09/28/2018 15:30:23 09/29/19 19 09/28/2018 urina lysis , dipst ick, auto Unknown Analyte Negati ve Not Available [facility] [place] Extended Services With [facility] [address], [place], [address], 09/28/2018 15:30:23 09/29/19 19 09/28/2018 urina lysis , dipst ick, auto Unknown Analyte Negati ve Not Available [facility] [place] Extended Services With [facility] [address], [place], [address], 09/28/2018 15:30:23 09/29/19 19 09/28/2018 urina lysis , dipst ick, auto Unknown Analyte Negati ve Not Available [facility] [place] Extended Services With [facility] [address], [place], [address], 09/28/2018 15:30:23 09/29/19 19 09/28/2018 urina lysis , dipst ick, auto Unknown Analyte Negati ve Not Available [facility] [place] Extended Services With [facility] [address], [place], [address], 09/28/2018 15:30:23 09/29/19 19 09/28/2018 urina lysis , dipst ick, auto Unknown Analyte Clean Catch Not Available [facility] [place] Extended Services With [facility] [address], [place], [address], 09/28/2018 15:30:23 09/29/19 19 09/28/2018 urina lysis , dipst ick, auto Unknown Analyte Automa kiley Not Available [facility] [place] Extended Services With [facility] [address], [place], [address], 09/28/2018 15:30:23 11/12/19 19 11/11/2018 urina lysis , dipst ick, auto Unknown Analyte Yellow Not Available [facility] Schedule [address] [place], [address], 11/11/2018 14:23:53 11/12/19 19 11/11/2018 urina lysis , dipst ick, auto Unknown Analyte Clear Not Available [facility] [address] [place], [address], 11/11/2018 14:23:53 11/12/19 19 11/11/2018 urina lysis , dipst ick, auto Unknown Analyte 1.010 Not Available [facility] Schedule [address] [place], [address], 11/11/2018 14:23:53 11/12/19 19 11/11/2018 urina lysis , dipst ick, auto Unknown Analyte 5.0 Not Available [facility] Schedule [address] [place], [address], 11/11/2018 14:23:53 11/12/19 19 11/11/2018 urina lysis , dipst ick, auto Unknown Analyte Negati ve Not Available [facility] Surgery Schedule [address] [place], [address], 11/11/2018 14:23:53 11/12/19 19 11/11/2018 urina lysis , dipst ick, auto Unknown Analyte Negati ve Not Available [facility] Surgery Schedule [address] [place], [address], 11/11/2018 14:23:53 11/12/19 19 11/11/2018 urina lysis , dipst ick, auto Unknown Analyte Negtiv e Not Available [facility] Surgery Schedule [address] [place], [address], 11/11/2018 14:23:53 11/12/19 19 11/11/2018 urina lysis , dipst ick, auto Unknown Analyte Normal Not Available [facility] Schedule [address] [place], [address], 11/11/2018 14:23:53 11/12/19 19 11/11/2018 urina lysis , dipst ick, auto Unknown Analyte Negati ve Not Available [facility] Surgery Schedule [address] [place], [address], 11/11/2018 14:23:53 11/12/19 19 11/11/2018 urina lysis , dipst ick, auto Unknown Analyte Normal Not Available [facility] Schedule [address] [place], [address], 11/11/2018 14:23:53 11/12/19 19 11/11/2018 urina lysis , dipst ick, auto Unknown Analyte Negati ve Not Available [facility] Surgery Schedule [address] [place], [address], 11/11/2018 14:23:53 11/12/19 19 11/11/2018 urina lysis , dipst ick, auto Unknown Analyte Negati ve Not Available [facility] Surgery Schedule [address] [place], [address], 11/11/2018 14:23:53 11/12/19 19 11/11/2018 urina lysis , dipst ick, auto Unknown Analyte Clean Catch Not Available [facility] Surgery Schedule [address] [place], [address], 11/11/2018 14:23:53 11/12/19 19 11/11/2018 urina lysis , dipst ick, auto Unknown Analyte Automa kiley Not Available [facility] Surgery Schedule [address] [place], [address], 11/11/2018 14:23:53 01/12/20 19 01/11/2019 urina lysis , dipst ick, auto Unknown Analyte Yellow Not Available [facility] [place] Extended Services With [facility] [address] [facility] [address], [place], [address], 01/11/2019 14:35:50 01/12/20 19 01/11/2019 urina lysis , dipst ick, auto Unknown Analyte Clear Not Available [facility] [place] Extended Services With [place] [address], [place], [address], 01/11/2019 14:35:50 01/12/20 19 01/11/2019 urina lysis , dipst ick, auto Unknown Analyte 1.010 Not Available [facility] Extended Services With [place] [address] [facility] [address], [place], [address], 01/11/2019 14:35:50 01/12/20 19 01/11/2019 urina lysis , dipst ick, auto Unknown Analyte 1.003 - 1.035 Not Available [facility] [place] Extended Services With [place] [address], [place], [address], 01/11/2019 14:35:50 01/12/20 19 01/11/2019 urina lysis , dipst ick, auto Unknown Analyte 7.0 Not Available [facility] Extended Services With [address], [place], [address], 01/11/2019 14:35:50 01/12/20 19 01/11/2019 urina lysis , dipst ick, auto Unknown Analyte 5.0 - 8.0 Not Available [facility] [place] Extended Services With [place] [address], [place], [address], 01/11/2019 14:35:50 01/12/20 19 01/11/2019 urina lysis , dipst ick, auto Unknown Analyte Negati ve Not Available [facility] [place] Extended Services With [address], [place], [address], 01/11/2019 14:35:50 01/12/20 19 01/11/2019 urina lysis , dipst ick, auto Unknown Analyte Negati ve Not Available [facility] [place] Extended Services With [facility] [address], [place], [address], 01/11/2019 14:35:50 01/12/20 19 01/11/2019 urina lysis , dipst ick, auto Unknown Analyte Negati ve Not Available [facility] [place] Extended Services With [facility] [address], [place], [address], 01/11/2019 14:35:50 01/12/20 19 01/11/2019 urina lysis , dipst ick, auto Unknown Analyte Negati ve Not Available [facility] [place] Extended Services With [facility] [address], [place], [address], 01/11/2019 14:35:50 01/12/20 19 01/11/2019 urina lysis , dipst ick, auto Unknown Analyte Negtiv e Not Available [facility] [place] Extended Services With [facility] [address], [place], [address], 01/11/2019 14:35:50 01/12/20 19 01/11/2019 urina lysis , dipst ick, auto Unknown Analyte Negati ve - Trace Not Available [facility] [place] Extended Services With [facility] [address], [place], [address], 01/11/2019 14:35:50 01/12/20 19 01/11/2019 urina lysis , dipst ick, auto Unknown Analyte Normal Not Available [facility] [place] Extended Services With [facility] [address], [place], [address], 01/11/2019 14:35:50 01/12/20 19 01/11/2019 urina lysis , dipst ick, auto Unknown Analyte Normal Not Available [facility] Extended Services With [facility] [address], [place], [address], 01/11/2019 14:35:50 01/12/20 19 01/11/2019 urina lysis , dipst ick, auto Unknown Analyte Negati ve Not Available [facility] Extended Services With [facility] [address], [place], [address], 01/11/2019 14:35:50 01/12/20 19 01/11/2019 urina lysis , dipst ick, auto Unknown Analyte Negati ve Not Available [facility] Extended Services With [facility] [address], [place], [address], 01/11/2019 14:35:50 01/12/20 19 01/11/2019 urina lysis , dipst ick, auto Unknown Analyte Normal Not Available [facility] Extended Services With [facility] [address], [place], [address], 01/11/2019 14:35:50 01/12/20 19 01/11/2019 urina lysis , dipst ick, auto Unknown Analyte Normal - 1mg/dl Not Available [facility] Extended Services With [facility] [address], [place], [address], 01/11/2019 14:35:50 01/12/20 19 01/11/2019 urina lysis , dipst ick, auto Unknown Analyte Negati ve Not Available [facility] With [facility] [address], [place], [address], 01/11/2019 14:35:50 01/12/20 19 01/11/2019 urina lysis , dipst ick, auto Unknown Analyte Negati ve Not Available [facility] [place] Extended Services With [facility] [address], [place], [address], 01/11/2019 14:35:50 01/12/20 19 01/11/2019 urina lysis , dipst ick, auto Unknown Analyte Negati ve Not Available [facility] [place] Extended Services With [facility] [address], [place], [address], 01/11/2019 14:35:50 01/12/20 19 01/11/2019 urina lysis , dipst ick, auto Unknown Analyte Negati ve Not Available [facility] [place] Extended Services With [facility] [address], [place], [address], 01/11/2019 14:35:50 01/12/20 19 01/11/2019 urina lysis , dipst ick, auto Unknown Analyte Clean Catch Not Available [facility] [place] Extended Services With [facility] [address], [place], [address], 01/11/2019 14:35:50 01/12/20 19 01/11/2019 urina lysis , dipst ick, auto Unknown Analyte Automa kiley Not Available [facility] [place] Extended Services With [facility] [address], [place], [address], 01/11/2019 14:35:50 01/21/20 19 01/20/2019 , blaciera er No observ ation record ed. [facility] [place] [address] [place], [id number], 01/28/2019 11:17:09 01/21/20 19 01/20/2019 [place], chiquitaciera er No observ ation record ed. [facility] [place] [address] Silvia Landeros [place], [id number], 01/28/2019 11:17:08 Result Notes None recorded. 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 Procedures Surgical History Date Name Laterality Status Provider Name and Address Organization Details Recorded Time 11/12/19 19 Uroflowmetry; Complex completed [facility] 11/11/2018 17:11:33 11/12/19 19 Urodynamics Interpretation completed LESA COLEMAN JR, MD [address] [place] [address], [phone], [facility] 11/12/2018 08:30:40 11/12/19 19 Urodynamics completed [facility] 11/11/2018 17:19:43 11/12/19 19 Cystoscopy completed Murelene Eliu [facility] 11/23/2018 16:33:19 Hysterectomy completed Deseriee Stuart [facility] 09/28/2018 15:27:00 Imaging Results None recorded. Procedure Notes None recorded. Medical Equipment None Reported. Allergies Allergen ID Allergen Name Allergen Category Reaction Reaction Severity Criticality Documentation Date Start Date Code Code System Note Provider Name and Address Organization Details Recorded Time 962901 codeine medicatio n Not available Not available Not available 06/21/20162013 2670 RxNorm Comme nt: Creat ed By: Vladislav Estevez ny;Cr eated Date: 2013 3:51: 36 PM; Not Available [facility] 6 05:22:38 Medications Name Sig Start Date [...] Updated DateTime 09/28/2018 157.48 cm 43.9 kg/m2 633761.17 g Geovani Stuart [facility] 09/28/2018 15:25:23 Date Recorded Body height Body mass index (BMI) Body weight Provider Name and Address Organization Details Last Updated DateTime 11/11/2018 157.48 cm 43.9 kg/m2 126391.17 g Nighat Hay [facility] 11/11/2018 17:10:17 Date Recorded Body height Body mass index (BMI) Body weight Provider Name and Address Organization Details Last Updated DateTime 11/23/2018 157.48 cm 43.9 kg/m2 210359.17 g Nikolai Nowak [facility] 11/23/2018 16:32:49 Date Recorded Body height Body mass index (BMI) Body weight Provider Name and Address Organization Details Last Updated DateTime 01/11/2019 157.48 cm 43.9 kg/m2 204582.17 g Geovani Rdz [facility] 01/11/2019 14:35:03 Social History Question Answer Notes LastModified by Organizat ion Details LastModified Time Tobacco Sm[facility] 09/28/2018 15:26:44 How Much Tobacco Do You Chew? None [email or web address] Information not available 11/23/2018 Marital Status Informatio n not available 09/28/2018 What Was The Date Of Your Most Recent Tobacco Screening? 01/11/2019 Information n ot available 09/14/2019 Sex: Unknown Functional Status Question Answer Note LastModified by Organizat ion Details LastModified Time What is your level [...] SNOMED-CT Code Diagnosis ICD10 Code Diagnosis Note [id number] MD LOUISE SALMERON JR [facility] [address] [facility] [address] [facility] [place] [address] 09/28/2018 14:42:20 09/29/2018 10:48:00 Mixed urinary incontinence 324997861 N39.46 Herniation of rectum into vagina 596493007 N81.6 [id number] LESA COLEMAN JR, MD [facility] [address] [place] [address] 11/11/2018 10:59:11 11/11/2018 12:08:48 Mixed urinary incontinence 036580120 N39.46 [id number] LESA COLEMAN JR, MD SURGERY SCHEDULE [address] [place] [address] 11/11/2018 13:25:28 11/11/2018 13:28:35 [id number] LESA COLEMAN JR, MD [facility] [address] [facility] [place] [address] 11/23/2018 16:02:38 11/24/2018 09:13:47 Mixed urinary incontinence [id number] N39.46 [id number] LESA COLEMAN JR, MD [facility] [address] [facility] [place] [address] 01/11/2019 14:33:18 01/11/2019 15:15:51 Mixed urinary incontinence 120011285 N39.46 Health Concerns Section Related Observation LastModified by Organization Detai ls LastModified Time None Recorded Concern Status LastModified by Organization Details LastModified Time None Recorded Advance Directives Directive None Recorded Payers Insurance Date Sequence Insurance Name Policy Number Policy Archibald Covered Member ID Archibald Member ID Guarantor Name 06/21/2020 1 [facility] [id number] Radha Chou [id number] Radha Chou Notes Date Note Type Note [...] urinary tract infections. LESA COLEMAN JR, MD [facility] [place], [address], [facility] 09/28/2018 16:56:45 11/23/2018 text/html Patient is in today for follow-up of mixed incontinence. She underwent cystoscopy and urodynamics November 11, 2018. She has significant stress incontinence as well as overactivity of the bladder muscle. Do not think that her postvoid residual is accurate. She is interested in initiating therapy. She has not tried Myrbetriq at this point. LESA COLEMAN JR, MD [address] [place], [address], [facility] 11/23/2018 16:45:31 01/11/2019 text/html Patient is in today for follow-up of mixed incontinence. She underwent cystoscopy and urodynamics November 11, 2018. She has significant stress incontinence as well as overactivity of the bladder muscle. Urgency symptoms have improved with myrbetriq therapy. Patient is interested in suburethral sling for treatment of stress incontinence. LESA COLEMAN JR, MD [address] [place], [address], [facility] 01/11/2019 14:50:36 OBGyn Episode No OBEpisode recorded.
[2025-02-08 17:06] LABS: Hematocrit 40.5 % (37.0-47.0); Hemoglobin 13.4 g/dL (12.2-16.2); Immature Granulocytes % 0.2 %; Mean Corpuscular HGB Conc 33.1 g/dL (31.8-35.4); Mean Corpuscular Hemoglobin 32.6 pg (27.0-31.2); Mean Corpuscular Volume 98.5 fl (81-99); Nucleated Red Blood Cells % 0 %; Platelet Count 267 K/mm3 (142-424); Red Blood Count 4.11 M/mm3 (4.20-5.40); Red Cell Distribution Width-SD 46.9 fL; White Blood Count 6.1 K/mm3 (4.8-10.8)
[2025-02-08 19:13] LABS: Albumin Level 4.4 g/dl (3.5-5.0); Chloride 100 mmol/L (98-107); Potassium 5.1 mmoL/L (3.5-5.1); Sodium 138 mmol/L (136-145)
[2025-02-08 19:15] LABS: Blood Urea Nitrogen 19 mg/dl (7-17); Creatinine,Serum 0.70 mg/dl (0.52-1.04); Estimated Glomerular Filt Rate 85 ml/min (>60); GFR (African American) 103 ML/MIN (>60)
[2025-02-08 19:16] LABS: Alanine Aminotransferase 16 U/L (12-78); Albumin/Globulin Ratio 1.6 (1.1-1.8); Alkaline Phosphatase 78 U/L (38-126); Anion Gap 14.1 mEq/L (5-15); Aspartate Amino Transferase 21 U/L (14-36); Bilirubin,Total 0.4 mg/dl (0.2-1.3); Calcium 9.1 mg/dl (8.4-10.2); Carbon Dioxide 29 mmol/L (22.0-30.0); Globulin 2.7 g/dL (1.3-3.2); Glucose 106 mg/dl (74-100); Total Protein,Serum 7.1 g/dl (6.3-8.2)
== END 2025-02-08 23:59 | disposition home or self-care (01) ==
LOC: LAB 16:12
PROVIDERS: PCP Nurse Practitioner; Visit Provider Dermatology
DX: L40.0 Psoriasis vulgaris (principal); Z79.899 Other long term (current) drug therapy
CPT/HCPCS: 36415; 80053; 85025; 86480

== ENCOUNTER 2025-06-07 14:16 | Outpatient (CLI) | payer OTHER, SELFPAY ==
--- OUTSIDE RECORDS SUMMARY | 2025-06-07 14:26 | XMS_ITS | Data Portability ---
Author Organization [facility] Pa LAWTEY CLOSED Address [address] [facility] [facility] [place] [address] Assessment Encounter Date Assessment Date Assessment LastModified [...] Lab urinalysis , dipstick, auto 2018 019 [facility] Extended Services With [facility], [address] , [facility] [address], [place], [address], 9 14:49:31 urinalysis , dipstick, auto 2018 019 [facility] Extended Services With [facility], [address], [address], [place], [address], 9 16:44:50 urinalysis , dipstick, auto 2018 019 [email or web address] Extended Services With [facility], [address], [address], [place], [address], 9 15:32:24 Referral None recorded. Procedures urodynamic testing, complex (PROC) 2018 019 katt [facility] With [facility], [address], [address], [place], [address], 9 15:34:34 Surgeries sling operation for stress incontinen ce (SURG) 2018 [email or web address] [facility] Professional [facility]es, [address] [facility], [facility] [address], [place], [address], 0 14:46:00 cystoscopy (SURG) [email or web address] [facility], [address] [facility], [facility] [address], [place], [address], 9 10:25:30 Imaging US, bladder - Renal US w/Bladder 2018 019 [facility] (Scheduling), [address], [place], [address], 9 09:45:11 Medication Orders Myrbetriq 50 mg tablet,ext ended release 2018 019 INTERFACE [facility], [address], [place], [address], 9 15:35:43 Patient TargetsNo targets recorded. Patient Instructions Encounter Date Encounter Id Patient Instructions Last Modified By Organization Details Last Modified Time 09/28/2018 [id number] rectocele: care instructions tslabaugh Not available 09/28/2018 [...] procedure. tslabaugh Not available 09/28/2018 16:56:10 11/23/2018 [id number] bladder training : care instructions tslabaugh Not [...] Lillibetriq. tslabaugh Not available 11/23/2018 16:45:17 01/11/2019 [id number] bladder training : care instructions tslabaugh Not [...] ick, auto Unknown Analyte Yellow Not Available [facility] Extended Services With [address], [address], 11/23/2018 16:33:49 11/24/19 19 11/23/2018 urina lysis , dipst ick, auto Unknown Analyte Clear Not Available [facility] Extended Services With [address], [address], 11/23/2018 16:33:49 11/24/19 19 11/23/2018 urina lysis , dipst ick, auto Unknown Analyte 1.010 Not Available [facility] Extended Services With [address], [address], 11/23/2018 16:33:49 11/24/19 19 11/23/2018 urina lysis , dipst ick, auto Unknown Analyte 1.003 - 1.035 Not Available [facility] Extended Services With [address], [address], 11/23/2018 16:33:49 11/24/19 19 11/23/2018 urina lysis , dipst ick, auto Unknown Analyte 7.0 Not Available [facility] Extended Services With [address] [place], [address], 11/23/2018 16:33:49 11/24/19 19 11/23/2018 urina lysis , dipst ick, auto Unknown Analyte 5.0 - 8.0 Not Available [facility] Extended Services With [facility] [address], [place], [address], 11/23/2018 16:33:49 11/24/19 19 11/23/2018 urina lysis , dipst ick, auto Unknown Analyte Negati ve Not Available [facility] Extended Services With [facility] [address], [place], [address], 11/23/2018 16:33:49 11/24/19 19 11/23/2018 urina lysis , dipst ick, auto Unknown Analyte Negati ve Not Available [facility] Extended Services With [facility] [address], [place], [address], 11/23/2018 16:33:49 11/24/19 19 11/23/2018 urina lysis , dipst ick, auto Unknown Analyte Negati ve Not Available [facility] Extended Services With [facility] [address], [place], [address], 11/23/2018 16:33:49 11/24/19 19 11/23/2018 urina lysis , dipst ick, auto Unknown Analyte Negati ve Not Available [facility] Extended Services With [facility] [address], [place], [address], 11/23/2018 16:33:49 11/24/19 19 11/23/2018 urina lysis , dipst ick, auto Unknown Analyte Negtiv e Not Available [facility] Extended Services With [facility] [address], [place], [address], 11/23/2018 16:33:49 11/24/19 19 11/23/2018 urina lysis , dipst ick, auto Unknown Analyte Negati ve - Trace Not Available [facility] Extended Services With [facility] [address], [place], [address], 11/23/2018 16:33:49 11/24/19 19 11/23/2018 urina lysis , dipst ick, auto Unknown Analyte Normal Not Available [facility] Extended Services With [facility] [address], [place], [address], 11/23/2018 16:33:49 11/24/19 19 11/23/2018 urina lysis , dipst ick, auto Unknown Analyte Normal Not Available [facility] Extended Services With [facility] [address], [place], [address], 11/23/2018 16:33:49 11/24/19 19 11/23/2018 urina lysis , dipst ick, auto Unknown Analyte Negati ve Not Available [facility] Extended Services With [facility] [address], [place], [address], 11/23/2018 16:33:49 11/24/19 19 11/23/2018 urina lysis , dipst ick, auto Unknown Analyte Negati ve Not Available [facility] Extended Services With [facility] [address], [place], [address], 11/23/2018 16:33:49 11/24/19 19 11/23/2018 urina lysis , dipst ick, auto Unknown Analyte 1 mg/dl Not Available [facility] Extended Services With [facility] [address], [place], [address], 11/23/2018 16:33:49 11/24/19 19 11/23/2018 urina lysis , dipst ick, auto Unknown Analyte Normal - 1mg/dl Not Available [facility] Extended Services With [facility] [address], [place], [address], 11/23/2018 16:33:49 11/24/19 19 11/23/2018 urina lysis , dipst ick, auto Unknown Analyte Negati ve Not Available [facility] Extended Services With [facility] [address], [place], [address], 11/23/2018 16:33:49 11/24/19 19 11/23/2018 urina lysis , dipst ick, auto Unknown Analyte Negati ve Not Available [facility] Extended Services With [facility] [address], [place], [address], 11/23/2018 16:33:49 11/24/19 19 11/23/2018 urina lysis , dipst ick, auto Unknown Analyte Negati ve Not Available [facility] Extended Services With [facility] [address], [place], [address], 11/23/2018 16:33:49 11/24/19 19 11/23/2018 urina lysis , dipst ick, auto Unknown Analyte Negati ve Not Available [facility] Extended Services With [facility] [address], [place], [address], 11/23/2018 16:33:49 09/29/19 19 09/28/2018 urina lysis , dipst ick, auto Unknown Analyte Yellow Not Available [facility] [place] Extended Services With [place] [address] [facility] [address], [place], [address], 09/28/2018 15:30:23 09/29/19 19 09/28/2018 urina lysis , dipst ick, auto Unknown Analyte Clear Not Available [facility] Extended Services With [place] [address] [facility] [address], [place], [address], 09/28/2018 15:30:23 09/29/19 19 09/28/2018 urina lysis , dipst ick, auto Unknown Analyte 1.010 Not Available [facility] Extended Services With [place] [address] [facility] [address], [place], [address], 09/28/2018 15:30:23 09/29/19 19 09/28/2018 urina lysis , dipst ick, auto Unknown Analyte 1.003 - 1.035 Not Available [facility] Extended Services With [place] [address] [facility] [address], [place], [address], 09/28/2018 15:30:23 09/29/19 19 09/28/2018 urina lysis , dipst ick, auto Unknown Analyte 7.0 Not Available [facility] Extended Services With [place] [address] [facility] [address], [place], [address], 09/28/2018 15:30:23 09/29/19 19 09/28/2018 urina lysis , dipst ick, auto Unknown Analyte 5.0 - 8.0 Not Available [facility] Extended Services With [place] [address], [place], [address], 09/28/2018 15:30:23 09/29/19 19 09/28/2018 urina lysis , dipst ick, auto Unknown Analyte Negati ve Not Available [facility] Extended Services With [facility] [address], [place], [address], 09/28/2018 15:30:23 09/29/19 19 09/28/2018 urina lysis , dipst ick, auto Unknown Analyte Negati ve Not Available [facility] Extended Services With [facility] [address], [place], [address], 09/28/2018 15:30:23 09/29/19 19 09/28/2018 urina lysis , dipst ick, auto Unknown Analyte Negati ve Not Available [facility] Extended Services With [facility] [address], [place], [address], 09/28/2018 15:30:23 09/29/19 19 09/28/2018 urina lysis , dipst ick, auto Unknown Analyte Negati ve Not Available [facility] Extended Services With [facility] [address], [place], [address], 09/28/2018 15:30:23 09/29/19 19 09/28/2018 urina lysis , dipst ick, auto Unknown Analyte Negtiv e Not Available [facility] Extended Services With [facility] [address], [place], [address], 09/28/2018 15:30:23 09/29/19 19 09/28/2018 urina lysis , dipst ick, auto Unknown Analyte Negati ve - Trace Not Available [facility] Extended Services With [facility] [address], [place], [address], 09/28/2018 15:30:23 03/0409/28/2018 urina lysis , dipst ick, auto Unknown Analyte Normal Not Available [facility] Extended Services With [facility] [address], [place], [address], 09/28/2018 15:30:23 09/29/19 19 09/28/2018 urina lysis , dipst ick, auto Unknown Analyte Normal Not Available [facility] Extended Services With [facility] [address], [place], [address], 09/28/2018 15:30:23 09/29/1909/28/2018 urina lysis , dipst ick, auto Unknown Analyte Negati ve Not Available [facility] Extended Services With [facility] [address], [place], [address], 09/28/2018 15:30:23 09/29/19 19 09/28/2018 urina lysis , dipst ick, auto Unknown Analyte Negati ve Not Available [facility] Extended Services With [facility] [address], [place], [address], 09/28/2018 15:30:23 09/29/19 19 09/28/2018 urina lysis , dipst ick, auto Unknown Analyte 1 mg/dl Not Available [facility] Extended Services With [facility] [address], [place], [address], 09/28/2018 15:30:23 09/29/19 19 09/28/2018 urina lysis , dipst ick, auto Unknown Analyte Normal - 1mg/dl Not Available [facility] Extended Services With [facility] [address], [place], [address], 09/28/2018 15:30:23 09/29/19 19 09/28/2018 urina lysis , dipst ick, auto Unknown Analyte Negati ve Not Available [facility] Extended Services With [facility] [address], [place], [address], 09/28/2018 15:30:23 09/29/19 19 09/28/2018 urina lysis , dipst ick, auto Unknown Analyte Negati ve Not Available [facility] Extended Services With [facility] [address], [place], [address], 09/28/2018 15:30:23 09/29/19 19 09/28/2018 urina lysis , dipst ick, auto Unknown Analyte Negati ve Not Available [facility] Extended Services With [facility] [address], [place], [address], 09/28/2018 15:30:23 09/29/19 19 09/28/2018 urina lysis , dipst ick, auto Unknown Analyte Negati ve Not Available [facility] Extended Services With [facility] [address], [place], [address], 09/28/2018 15:30:23 09/29/19 19 09/28/2018 urina lysis , dipst ick, auto Unknown Analyte Clean Catch Not Available [facility] Extended Services With [facility] [address], [place], [address], 09/28/2018 15:30:23 09/29/19 19 09/28/2018 urina lysis , dipst ick, auto Unknown Analyte Automa kiley Not Available [facility] Extended Services With [facility] [address], [place], [address], 09/28/2018 15:30:23 11/12/19 19 11/11/2018 urina lysis , dipst ick, auto Unknown Analyte Yellow Not Available [facility] Surgery Schedule [address] [place], [address], 11/11/2018 14:23:53 11/12/19 19 11/11/2018 urina lysis , dipst ick, auto Unknown Analyte Clear Not Available [facility] Surgery Schedule [address] [place], [address], 11/11/2018 14:23:53 11/12/19 19 11/11/2018 urina lysis , dipst ick, auto Unknown Analyte 1.010 Not Available [facility] Surgery Schedule [address] [place], [address], 11/11/2018 14:23:53 11/12/19 19 11/11/2018 urina lysis , dipst ick, auto Unknown Analyte 5.0 Not Available [facility] Schedule [address] [place], [address], 11/11/2018 14:23:53 11/12/19 19 11/11/2018 urina lysis , dipst ick, auto Unknown Analyte Negati ve Not Available [facility] Surgery Schedule [address] [place], [address], 11/11/2018 14:23:53 11/12/19 19 11/11/2018 urina lysis , dipst ick, auto Unknown Analyte Negati ve Not Available [facility] Surgery Schedule [address] [place], [address], 11/11/2018 14:23:53 11/12/19 19 11/11/2018 urina lysis , dipst ick, auto Unknown Analyte Negtiv e Not Available [facility] Surgery Schedule [address] [place], [address], 11/11/2018 14:23:53 11/12/19 19 11/11/2018 urina lysis , dipst ick, auto Unknown Analyte Normal Not Available [facility] Surgery Schedule [address] [place], [address], 11/11/2018 14:23:53 11/12/19 19 11/11/2018 urina lysis , dipst ick, auto Unknown Analyte Negati ve Not Available [facility] Surgery Schedule [address] [place], [address], 11/11/2018 14:23:53 11/12/19 19 11/11/2018 urina lysis , dipst ick, auto Unknown Analyte Normal Not Available [facility] Surgery Schedule [address] [place], [address], 11/11/2018 14:23:53 11/12/19 19 11/11/2018 urina lysis , dipst ick, auto Unknown Analyte Negati ve Not Available [facility] Surgery Schedule [address] [place], [address], 11/11/2018 14:23:53 11/12/19 19 11/11/2018 urina lysis , dipst ick, auto Unknown Analyte Negati ve Not Available [facility] Surgery Schedule [address] [place], [address], 11/11/2018 14:23:53 11/12/19 19 11/11/2018 urina lysis , dipst ick, auto Unknown Analyte Clean Catch Not Available [facility] Surgery Schedule [address] [place], [address], 11/11/2018 14:23:53 11/12/19 19 11/11/2018 urina lysis , dipst ick, auto Unknown Analyte Automa kiley Not Available [facility] Surgery Schedule [address] [place], [address], 11/11/2018 14:23:53 01/12/20 19 01/11/2019 urina lysis , dipst ick, auto Unknown Analyte Yellow Not Available [facility] [place] Extended Services With [facility] [address] [facility] [address], [place], [address], 01/11/2019 14:35:50 01/12/20 19 01/11/2019 urina lysis , dipst ick, auto Unknown Analyte Clear Not Available [facility] [place] Extended Services With [place] [address], [place], [address], 01/11/2019 14:35:50 01/12/20 19 01/11/2019 urina lysis , dipst ick, auto Unknown Analyte 1.010 Not Available [facility] Extended Services With [place] [address] [facility] [address], [place], [address], 01/11/2019 14:35:50 01/12/20 19 01/11/2019 urina lysis , dipst ick, auto Unknown Analyte 1.003 - 1.035 Not Available [facility] Extended Services With [place] [address], [place], [address], 01/11/2019 14:35:50 01/12/20 19 01/11/2019 urina lysis , dipst ick, auto Unknown Analyte 7.0 Not Available [facility] Extended Services With [address], [place], [address], 01/11/2019 14:35:50 01/12/20 19 01/11/2019 urina lysis , dipst ick, auto Unknown Analyte 5.0 - 8.0 Not Available [facility] Extended Services With [place] [address], [place], [address], 01/11/2019 14:35:50 01/12/20 19 01/11/2019 urina lysis , dipst ick, auto Unknown Analyte Negati ve Not Available [facility] [place] Extended Services With [address], [place], [address], 01/11/2019 14:35:50 01/12/20 19 01/11/2019 urina lysis , dipst ick, auto Unknown Analyte Negati ve Not Available [facility] Extended Services With [facility] [address], [place], [address], 01/11/2019 14:35:50 01/12/20 19 01/11/2019 urina lysis , dipst ick, auto Unknown Analyte Negati ve Not Available [facility] [place] Extended Services With [facility] [address], [place], [address], 01/11/2019 14:35:50 01/12/20 19 01/11/2019 urina lysis , dipst ick, auto Unknown Analyte Negati ve Not Available [facility] Extended Services With [facility] [address], [place], [address], 01/11/2019 14:35:50 01/12/20 19 01/11/2019 urina lysis , dipst ick, auto Unknown Analyte Negtiv e Not Available [facility] Extended Services With [facility] [address], [place], [address], 01/11/2019 14:35:50 01/12/20 19 01/11/2019 urina lysis , dipst ick, auto Unknown Analyte Negati ve - Trace Not Available [facility] [place] [place] Extended Services With [facility] [address], [place], [address], 01/11/2019 14:35:50 01/12/20 19 01/11/2019 urina lysis , dipst ick, auto Unknown Analyte Normal Not Available [facility] [place] Extended Services With [facility] [address], [place], [address], 01/11/2019 14:35:50 01/12/20 19 01/11/2019 urina lysis , dipst ick, auto Unknown Analyte Normal Not Available [facility] Extended Services With [facility] [address], [place], [address], 01/11/2019 14:35:50 01/12/20 19 01/11/2019 urina lysis , dipst ick, auto Unknown Analyte Negati ve Not Available [facility] Extended Services With [facility] [address], [place], [address], 01/11/2019 14:35:50 01/12/20 19 01/11/2019 urina lysis , dipst ick, auto Unknown Analyte Negati ve Not Available [facility] Extended Services With [facility] [address], [place], [address], 01/11/2019 14:35:50 01/12/20 19 01/11/2019 urina lysis , dipst ick, auto Unknown Analyte Normal Not Available [facility] Extended Services With [facility] [address], [place], [address], 01/11/2019 14:35:50 01/12/20 19 01/11/2019 urina lysis , dipst ick, auto Unknown Analyte Normal - 1mg/dl Not Available [facility] Extended Services With [facility] [address], [place], [address], 01/11/2019 14:35:50 01/12/20 19 01/11/2019 urina lysis , dipst ick, auto Unknown Analyte Negati ve Not Available [facility] [address], [place], [address], 01/11/2019 14:35:50 01/12/20 19 01/11/2019 urina lysis , dipst ick, auto Unknown Analyte Negati ve Not Available [facility] [place] Extended Services With [facility] [address], [place], [address], 01/11/2019 14:35:50 01/12/20 19 01/11/2019 urina lysis , dipst ick, auto Unknown Analyte Negati ve Not Available [facility] Extended Services With [facility] [address], [place], [address], 01/11/2019 14:35:50 01/12/20 19 01/11/2019 urina lysis , dipst ick, auto Unknown Analyte Negati ve Not Available [facility] Extended Services With [facility] [address], [place], [address], 01/11/2019 14:35:50 01/12/20 19 01/11/2019 urina lysis , dipst ick, auto Unknown Analyte Clean Catch Not Available [facility] Extended Services With [facility] [address], [place], [address], 01/11/2019 14:35:50 01/12/20 19 01/11/2019 urina lysis , dipst ick, auto Unknown Analyte Automa kiley Not Available [facility] Extended Services With [facility] [address], [place], [address], 01/11/2019 14:35:50 01/21/20 19 01/20/2019 , blacirea er No observ ation record ed. [facility] [place] [address] [place], [id number], 01/28/2019 11:17:09 01/21/20 19 01/20/2019 US, chiquitaciera er No observ ation record ed. [facility] [place] [address] [place], [phone], 01/28/2019 11:17:08 Result Notes None recorded. 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 Procedures Surgical History Date Name Laterality Status Provider Name and Address Organization Details Recorded Time 11/12/19 19 Uroflowmetry; Complex completed [facility] 11/11/2018 17:11:33 11/12/19 19 Urodynamics Interpretation completed LESA COLEMAN JR, MD [address] [place] [address], [id number], [facility] 11/12/2018 08:30:40 11/12/19 19 Urodynamics completed [facility] 11/11/2018 17:19:43 11/12/19 19 Cystoscopy completed Murelene Eliu [facility] 11/23/2018 16:33:19 Hysterectomy completed Deseriee Lafayette [facility] 09/28/2018 15:27:00 Imaging Results None recorded. Procedure Notes None recorded. Medical Equipment None Reported. Allergies Allergen ID Allergen Name Allergen Category Reaction Reaction Severity Criticality Documentation Date Start Date Code Code System Note Provider Name and Address Organization Details Recorded Time 792398 codeine medicatio n Not available Not available Not available 06/21/20162013 2670 RxNorm Comme nt: Creat ed By: Vladislav Estevez ny;Cr eated Date: 2013 3:51: 36 PM; Not Available [facility] 6 05:22:38 Medications Name Sig Start Date [...] Updated DateTime 09/28/2018 157.48 cm 43.9 kg/m2 886660.17 g Geovani [place] [facility] 09/28/2018 15:25:23 Date Recorded Body height Body mass index (BMI) Body weight Provider Name and Address Organization Details Last Updated DateTime 11/11/2018 157.48 cm 43.9 kg/m2 311211.17 g Nighat Hay [facility] 11/11/2018 17:10:17 Date Recorded Body height Body mass index (BMI) Body weight Provider Name and Address Organization Details Last Updated DateTime 11/23/2018 157.48 cm 43.9 kg/m2 582873.17 g Nikolai Nowak [facility] 11/23/2018 16:32:49 Date Recorded Body height Body mass index (BMI) Body weight Provider Name and Address Organization Details Last Updated DateTime 01/11/2019 157.48 cm 43.9 kg/m2 828719.17 g Geovani Rdz [facility] 01/11/2019 14:35:03 Social History Question Answer Notes LastModified by Organizat ion Details LastModified Time Tobacco Smoking Status [facility]2018 15:26:44 How Much Tobacco [...] Diagnosis SNOMED-CT Code Diagnosis ICD10 Code Diagnosis IMO Codes Diagnosis Note [id number] LESA COLEMAN JR, MD [facility] [address] [facility] [address] [place] [address] 09/28/2018 14:42:20 09/29/2018 10:48:00 Mixed urinary incontinence [id number] N39.46 Herniation of rectum into vagina 114781222 N81.6 [id number] LESA COLEMAN JR, MD [facility] [address] [place] [address] 11/11/2018 10:59:11 11/11/2018 12:08:48 Mixed urinary incontinence [id number] N39.46 [id number] LESA COLEMAN JR, MD SURGERY SCHEDULE [address] [place] [address] 11/11/2018 13:25:28 11/11/2018 13:28:35 [id number] LESA COLEMAN JR, MD [facility] [address] [facility] [address] [place] [address] 11/23/2018 16:02:38 11/24/2018 09:13:47 Mixed urinary incontinence [id number] N39.46 [id number] LESA COLEMAN JR, MD [facility] [address] [facility] [address] [place] [address] 01/11/2019 14:33:18 01/11/2019 15:15:51 Mixed urinary incontinence [id number] N39.46 Health Concerns Section Related Observation LastModified by Organization Detai ls LastModified Time None Recorded Concern Status LastModified by Organization Details LastModified Time None Recorded Advance Directives Directive None Recorded Payers Insurance Date Sequence Insurance Name Policy Number Policy Archibald Covered Member ID Archibald Member ID Guarantor Name 06/21/2020 1 [facility] [id number] Radha Chou [id number] Radha Chou Notes Date Note Type Note [...] urinary tract infections. LESA COLEMAN JR, MD [address] [place], [address], [facility] 09/28/2018 16:56:45 11/23/2018 text/html Patient is in today for follow-up of mixed incontinence. She underwent cystoscopy and urodynamics November 11, 2018. She has significant stress incontinence as well as overactivity of the bladder muscle. Do not think that her postvoid residual is accurate. She is interested in initiating therapy. She has not tried Myrbetriq at this point. LESA COLEMAN JR, MD [address] [place], [address], [facility] 11/23/2018 16:45:31 01/11/2019 text/html Patient is in today for follow-up of mixed incontinence. She underwent cystoscopy and urodynamics November 11, 2018. She has significant stress incontinence as well as overactivity of the bladder muscle. Urgency symptoms have improved with myrbetriq therapy. Patient is interested in suburethral sling for treatment of stress incontinence. LESA COLEMAN JR, MD [address] [place], [address], [facility] 01/11/2019 14:50:36 OBGyn Episode No OBEpisode recorded.
--- OUTSIDE RECORDS SUMMARY | 2025-06-07 14:26 | XMS_ITS | Clinical Summary ---
[facility] Address [address] [place] [address] Care Team Providers Care Binding Nicker Name Role Phone Nancy Lam MD Primary Care Provider [phone] Family History Medical History Relation Name Comments No Known Problems Brother No Known Problems Daughter No Known Problems Father No Known Problems Maternal Aunt No Known Problems Maternal Grandmother No Known Problems Mother No Known Problems Paternal Aunt No Known Problems Paternal Grandmother No Known Problems Sister No Known Problems Son Breast cancer Neg Hx Ovarian cancer Neg Hx Relation Name Status Comments Brother Daughter Father Maternal Aunt Maternal Grandmother Mother Paternal Aunt Paternal Grandmother Sister Son Social History Tobacco Use Types Packs/Day Years Used Date Smoking Tobacco: Never Assessed Comments No Sex and Gender Information Value Date Recorded Sex Assigned at Female 03/12/2022 6:02 PM EDT Legal Sex Female 11:21 AM EDT Gender Identity Female 03/12/2022 6:02 PM EDT Sexual Orientation Straight 03/12/2022 6: 02 PM EDT Plan of Treatment Health Maintenance Due Date Last Done Comments ANNUAL PHYSICAL 1965 Annual Gynecologic Pelvic an d Breast Exam 1965 HEPATITIS C SCREENING 1963 TDAP/TD VACCINES (2 - Tdap) 10/04/2006 10/04/1996 COLOGUARD 2008 COLON CANCER SCREENING 5 YEA R SIGMOIDOSCOPY 2008 COLONOSCOPY 2008 [address] CANCER SCREENING 2008 CT COLONOGRAPHY 2008 FECAL OCCULT BLOOD TEST 2008 FIT Testing (1 year) 2008 ZOSTER VACCINE (2 of 3) 12/08/2023 10/13/2023 Pneumococcal Vaccine 50+ (2 of 2 - PCV) 10/12/2024 10/13/2023 INFLUENZA VACCINE 02/25/2025 MAMMOGRAM 07/24/2026 07/24/2024, 10/0 01/2023, 04/19/2022, Additional history exists Procedures Procedure Name Priority Date/Time Associated Diagnosis Comments MAMMO SCREENING DIGITAL TOMOSYNTHESIS BILATERAL W CAD Routine 07/24/2024 9:43 AM EST Visit for screening mammogram from Last 3 Months or Most Recently Relevant to Health Maintenance Results * Mammo Screening Digital Tomosynthesis Bilateral With CAD (07/24/2024 9:43 AM EST) Anatomical Region Laterality Modality Breast N/A Mammography 07/29/2024 4:40 PM EST Impressions 07/29/2024 4:43 PM EST No mammographic findings suspicious for malignancy. RECOMMENDATION: Continue annual screening mammography. BI-RADS CATEGORY 1, NEGATIVE. CAD was utilized. The standard false-negative rate of mammography is between 10% and 25%. Complex patterns or increased breast density will markedly elevate the false-negative rate of mammography. A letter, in lay terminology, with the results of this exam will be mailed to the patient. This report was finalized on 07/29/2024 4:[address] Gosia Olea MD. Narrative 07/29/2024 4:43 PM EST BILATERAL SCREENING MAMMOGRAM WITH TOMOSYNTHESIS: HISTORY: The patient has no personal history or significant family history of breast cancer and no focal breast complaints at the time of screening mammography. TECHNIQUE: Bilateral CC and MLO low dose, full field digital mammographic images were obtained with tomosynthesis. COMPARISON: 05/03/2023, 04/19/2022, 04/05/2022, 01/12/2021, 09/27/2019, 09/09/2018, 2019, 09/24/2018, 08/28/2017, 08/09/2016 FINDINGS: The breast tissue is heterogeneously dense, which may obscure small masses. The fibroglandular pattern is stable. There are no suspicious masses, worrisome calcifications, nonsurgical areas of architectural distortion, or other secondary signs of malignancy. us Nancy Lam MD IMG MAMMOGRAPHY ORDERABLES Fi nal Result from Last 3 Months or Most Recently Relevant to Health Maintenance Insurance [facility] Care Teams Binding Nicker Relationship Specialty Start Date End Date Nancy Lam MD [address] [place] [address] PCP - General Obstetrics and Gynecology 08/09/16
--- NOTE | 2025-06-07 14:30 | CT_ITS ---
FINAL REPORT TECHNIQUE: Thin section axial CT images with coronal and sagittal reformats were performed. This study was performed with techniques to keep radiation doses as low as reasonably achievable (ALARA). Individualized dose reduction techniques using automated exposure control or adjustment of mA and/or kV according to the patient''s size were employed. CLINICAL HISTORY: Left Knee MY KNEE Protocol FINDINGS: There is severe degenerative changes of the knee, greatest in the medial compartment. Small joint effusion is identified. There is no joint body. IMPRESSION: Advanced degenerative changes. Reviewed, Interpreted and Dictated by Tami Bhat MD Transcribed by Kristi Hurt Authenticated and [facility]
== END 2025-06-07 23:59 | disposition home or self-care (01) ==
LOC: RAD 14:16
PROVIDERS: PCP Nurse Practitioner; Visit Provider Physician Assistant
DX: M17.12 Unilateral primary osteoarthritis, left knee (principal)
CPT/HCPCS: 73700

== ENCOUNTER 2025-06-21 13:00 | Outpatient (RCR) | payer OTHER, SELFPAY ==
--- NOTE | 2025-06-14 15:55 | HMH.PTOPEV ---
PT Evaluation Rehab PT Outpatient Evaluation Start: 06/14/25 14:02 Freq: Status: Active Protocol: Document 06/14/25 14:02 ABY (Rec: 06/14/25 14:48 ABY [id number]) E-signed By Anna Oliveira, PT Outpatient Therapy Subjective History Subjective History This is an initial PT evaluation for 60 y/o female, Radha Chou, who presents to PT for L TKA prehab/L knee pain. Pt has been having L knee pain for a few years now. Pt with plans to have L TKA. Pt reports she does not yet have a projected date for her surgery. Pt had a CT scan that showed severe degenerative changes of the knee, greatest in the medial compartment. Pt currently ambulates without an AD but does demo an antalgic gait. Pt reports she intermittently will use a knee brace for pain management and support. Pt reports she has difficulty standing for long periods of time d /t the pain and also reports difficulty ambulating community distances. 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 Pt reports majority of her job duties are performed seated at a desk. Pt denies any numbness or tingling in her LE. PMH: high BP, hysterectomy New diagnosis of No cancer in past 12 months? Chief Complaint Pain,Stiff Symptom Type Ache Symptoms Relieved By Rest/Positioning Prior Functional None Limitations Current Functional Standing,Squatting,Recreation Activity,Walking,Stairs Limitations Symptom Description Activity Dependent Pain scale - at its 0 best (0-10) Pain scale - at its 5 worst (0-10) Hip/Knee Eval Gait Observation General Gait Pattern Antalgic Gait Observation Assistive Device Assistive Devices None / NA MMT left Hip Flexion Strength 4+ Good+ Grade Hip Abduction 4+ Good+ Strength Grade Hip Adduction 4+ Good+ Strength Grade Hip Extension 4+ Good+ Strength Grade Knee Extension 4 Good Strength Grade Knee Flexion 4 Good Strength Grade ROM Knee Extension lacking 6 deg Active Range of Motion (degrees) Knee Extension lacking 4 degrees Passive Range of Motion (degrees) Knee Flexion Active 115 Range of Motion ( degrees) Knee Flexion Passive 118, ST limitation Range of Motion ( degrees) Sensation Comment light touch sensation intact in BLE Lower Extremity Functional Index Activities Today, do you or would you have any difficulty at all with: a.Any of your usual Moderate difficulty work, housework or school activities b. Your usual A little bit of difficulty hobbies, recreational or sporting activities c. Getting into or No difficulty out of the bath d. Walking between A little bit of difficulty rooms e. Putting on your A little bit of difficulty shoes or socks f. Squatting Moderate difficulty g. Lifting an object No difficulty , like a bag of groceries from the floor h. Performing light Moderate difficulty activities around your home i. Performing heavy Quite a bit of difficulty activities around your home j. Getting into or A little bit of difficulty out of a car k. Walking 2 blocks Extreme difficulty or unable to perform activity l. Walking a mile Extreme difficulty or unable to perform activity m. Going up or down Quite a bit of difficulty 10 stairs (about 1 flight of stairs) n. Standing for 1 Extreme difficulty or unable to perform activity hour o. Sitting for 1 No difficulty hour p. Running on even Extreme difficulty or unable to perform activity ground q. Running on uneven Extreme difficulty or unable to perform activity ground r. Making sharp Extreme difficulty or unable to perform activity turns while running fast s. Hopping Extreme difficulty or unable to perform activity t. Rolling over in Moderate difficulty bed LEFI Score Lower Extremity 34 Functional Index Score Outpatient Therapy Assessment Prognosis Rehab Potential Good Comment Pt presents with impaired L knee AROM and strength. Pt would benefit from skilled PT to address deficits and prepare for L TKA. PT provided pt with HEP (heel slides, LAQ, HS curl, calf stretch, calf raises, SLR). Pt demo'd understanding. Clinical Impression Consistent with Yes Diagnosis PT Patient Goals PT Patient Goals PT Short Term In 4 weeks, pt will: Patient Goals 1) Improve L knee AROM to 5-118 degrees to improve functional ROM. 2) Tolerate 10 minutes of pedaling on NuStep bike at level 3 to improve functional LE strength. 3) Amb 10 minutes without increase in knee pain. 4) Improve LEFS to score of 37/80 to improve LE functioning. 5) Verbalize a 48-hour knee pain average of 3/10. 6) Verbalize compliance with home exercise program maximize positive post-surgical outcomes. PT Correction Patient In 6 weeks, pt will: Goals 1) Improve L knee ROM to 0-120 degrees to improve functional ROM. 2) Demo at least LLE MMT of 5/5 globally to improve functioning. 3) Negotiate 12 6 stair steps to improve community navigation. 4) Improve LEFS to score of 40/80 to improve LE functioning and return to PLOF 5) Verbalize a 48-hour knee pain average of 1-2/10 6) Verbalize compliance with home exercise program maximize positive post-surgical outcomes. Outpatient Therapy Plan of Care Treatment Plan May Include Therapeutic Exercise Yes Including Home Exercise Program Manual Therapy Yes Techniques Neuromuscular Re- Yes education Therapeutic Yes Activities to Return to Previous Functional/Work Level Gait Training Yes ADL/Self Care Yes Education Thermal Modalities Yes Electrical Yes Stimulation Ultrasound/ Yes Phonophoresis Iontophoresis Yes Orthotics/Bracing/ Yes Splinting Massage Yes Eval/Re-Eval Yes Frequency Times per week 2x Duration Number of Weeks 5-6 weeks Addendums This patient is a No candidate for social or vocational rehab ? Patient/Guardian Yes verbally acknowledges understanding of treatment program and consents to further treatment? Patient/Guardian Yes verbally acknowledges understanding of diagnosis, prognosis and goals for treatment? Eval Complexity PT Charges 33188 - Moderate Complexity Shoulder/Elbow Eval Shoulder Objective Measurements Elbow Objective Measurements PHYSICIAN CERTIFICATION: I certify the specified therapy services for Radha Chou are required, authorized, and reviewed every 30 days.
== END 2025-06-21 23:59 | disposition home or self-care (01) ==
LOC: PT 13:00
PROVIDERS: PCP Nurse Practitioner; Visit Provider Physician Assistant
DX: M25.562 Pain in left knee (principal)
CPT/HCPCS: 97110; 97162; 97530

== ENCOUNTER 2025-07-19 08:00 | Outpatient (RCR) | payer OTHER, SELFPAY ==
--- NOTE | 2025-07-14 08:37 | HMH.RHREAS ---
Rehab Reassessment Rehab OP Re-assessment Start: 06/27/25 17:35 Freq: Status: Active Protocol: Document 07/14/25 08:16 ABY (Rec: 07/14/25 08:37 ABY [id number]) E-signed By Anna Oliveira PT Lower Extremity Functional Index Activities Today, do you or would you have any difficulty at all with: a.Any of your usual Moderate difficulty work, housework or school activities b. Your usual Extreme difficulty or unable to perform activity hobbies, recreational or sporting activities c. Getting into or No difficulty out of the bath d. Walking between A little bit of difficulty rooms e. Putting on your No difficulty shoes or socks f. Squatting Quite a bit of difficulty g. Lifting an object No difficulty , like a bag of groceries from the floor h. Performing light No difficulty activities around your home i. Performing heavy Extreme difficulty or unable to perform activity activities around your home j. Getting into or A little bit of difficulty out of a car k. Walking 2 blocks Extreme difficulty or unable to perform activity l. Walking a mile Extreme difficulty or unable to perform activity m. Going up or down Moderate difficulty 10 stairs (about 1 flight of stairs) n. Standing for 1 Extreme difficulty or unable to perform activity hour o. Sitting for 1 No difficulty hour p. Running on even Extreme difficulty or unable to perform activity ground q. Running on uneven Extreme difficulty or unable to perform activity ground r. Making sharp Extreme difficulty or unable to perform activity turns while running fast s. Hopping A little bit of difficulty t. Rolling over in A little bit of difficulty bed LEFI Score Lower Extremity 37 Functional Index Score Rehab Re-assessment Subjective Subjective HEP compliance: Pt reports good compliance at least once a day. Pt reports feeling 40% good since IE. Pt has an appointment with ortho on the 04 of August. TKA not yet scheduled. 48 hour pain average: 10/04 Objective Objective Notes L knee AROM: 3-118 degrees LLE strength: - hip flexion: 5/5 - hip abd: 5/5 - knee extension: 5/5 - knee flexion: 4/5 Assessment Progress Assessment Progressing as Expected Assessment Notes This is a reassessment Radha Chou who has been attending PT regularly for TKA prehab. Pt has met her STGs and is making good progress towards her LTGs. Skilled PT indicated to address remaining deficits, maximize positive post-op outcomes, and achieve LTGs. PT Patient Goals PT Short Term In 4 weeks, pt will: 6/6 MET Patient Goals 1) Improve L knee AROM to 5-118 degrees to improve functional ROM. MET 2) Tolerate 10 minutes of pedaling on NuStep bike at level 3 to improve functional LE strength: MET 3) Amb 10 minutes without increase in knee pain: MET 4) Improve LEFS to score of 37/80 to improve LE functioning: MET 5) Verbalize a 48-hour knee pain average of 3/10: MET 6) Verbalize compliance with home exercise program maximize positive post-surgical outcomes: MET PT Testing Manager Patient In 6 weeks, pt will: Goals 1) Improve L knee ROM to 0-120 degrees to improve functional ROM. 2) Demo at least LLE MMT of 5/5 globally to improve functioning. 3) Negotiate 12 6 stair steps to improve community navigation. 4) Improve LEFS to score of 40/80 to improve LE functioning and return to PLOF. 5) Verbalize a 48-hour knee pain average of 1-2/10 6) Verbalize compliance with home exercise program maximize positive post-surgical outcomes. Plan Plan Continue POC Frequency of Therapy 1-2 x Duration of Therapy 3 weeks Time and Billing Re-Eval Time 10 Re-Eval Billing 0 Units Charge for PT No reassessment? PHYSICIAN CERTIFICATION: I certify the specified therapy services for Radha Chou are required, authorized, and reviewed every 30 days.
== END 2025-07-19 23:59 | disposition home or self-care (01) ==
LOC: PT 08:00
PROVIDERS: PCP Nurse Practitioner; Visit Provider Physician Assistant
DX: M25.562 Pain in left knee (principal)
CPT/HCPCS: 97110; 97530